=== PATIENT | male | born 1975 | race Caucasian/White ===

== ENCOUNTER 2020-01-23 06:24 | Outpatient (REF) | payer BC, SELFPAY ==
[2020-01-23 07:22] LABS: MANUAL DIFF FLAG NO
[2020-01-23 07:34] LABS: Basophils Percent Auto 0.7 % (0-2); Eosinophils Absolute Auto 0.1 X10*3/uL (0.0-0.4); Eosinophils Percent Auto 2.2 % (0-4); Hematocrit 44.6 % (42-52); Hemoglobin 14.7 g/dl (14.0-18.0); Imm Gran Abs Auto 0.01 X10*3/uL (0.00-0.03); Imm Gran Pct Auto 0.2 % (0.0-0.4); Lymphocytes Absolute Auto 1.7 X10*3/uL (1.2-4.9); Lymphocytes Percent Auto 37.2 % (20-40); Mean Corpuscular Hemoglobin 30.4 pg (27.0-33.0); Mean Corpuscular Volume 92.1 fL (80-98); Mean Platelet Volume 9.7 fL (9.4-12.4); Monocytes Absolute Auto 0.5 X10*3/uL (0.1-1.2); Monocytes Percent Auto 11.4 % (2-11); Neutrophils Absolute Auto 2.2 X10*3/uL (2.0-8.3); Neutrophils Percent Auto 48.3 % (45-73); Platelet Count 260 X10*3/uL (160-400); Red Blood Count 4.84 X10*6/uL (4.60-5.80); Red Cell Distribution Width 12.1 % (11.0-16.0); White Blood Count 4.6 X10*3/uL (4.8-10.8)
[2020-01-23 07:46] LABS: Alanine Aminotransferase 24 U/L (0-40); Albumin Level 4.3 g/dL (3.5-5.0); Alkaline Phosphatase 64 U/L (39-117); Anion Gap 14 (12-20); Aspartate Amino Transferase 20 U/L (5-37); Bilirubin Total 0.4 mg/dL (0.0-1.0); Blood Urea Nitrogen 18 mg/dL (9-16); Calcium 9.1 mg/dL (8.4-10.2); Carbon Dioxide 26 mmol/L (22-29); Chloride 105 mmol/L (96-108); Cholesterol 194 mg/dL; Estimated Glomerular Filt Rate > 60; Glucose Random 90 mg/dL (60-115); HDL Cholesterol 53 mg/dL; LDL Cholesterol Calculated 122 mg/dl; Potassium 5.3 mmol/l (3.3-5.1); Sodium 140 mmol/L (135-145); Total Protein 7.2 g/dL (6.5-8.0); Triglycerides 98 mg/dL
[2020-01-23 08:11] LABS: Free T4 (Free Thyroxine) 0.96 ng/dL (0.71-1.85)
[2020-01-23 08:20] LABS: Folate 15.4 ng/mL (> or = 4.0); Vitamin B12 679 pg/mL (200-900)
== END 2020-01-23 06:25 | disposition home or self-care (01) ==
LOC: HO.LAB 06:24
PROVIDERS: Visit Provider Internal Medicine
DX: E78.00 Pure hypercholesterolemia, unspecified (principal); Z00.00 Encounter for general adult medical examination without abnormal findings
CPT/HCPCS: 36415; 80053; 80061; 82607; 82746; 84439; 84443; 85025

== ENCOUNTER → 2020-02-11 09:27 | Outpatient (REF) | payer BC, SELFPAY ==
--- NOTE | 2020-02-11 09:29 | CA_ITS ---
Transthoracic Echocardiogram Patient (Last, First, Middle): Heath Linton, Gender: Male Date of : 1975 Age: 44 Procedure Date: 02/11/2020 Procedure Type: Transthoracic Echocardiogram Location: OP Height: 177.8 cm Weight: 87.09 kg BSA: 2.05 m2 Heart Rate: 38 bpm BP: 116 / 56 mmHg Site Technician: Referring MD: Ester Bryant MD Symptoms: I35.0 - Nonrheumatic aortic (valve) stenosis Study Quality: Fair ECG Rhythm: Sinus bradycardia. Conclusions: - The left ventricular systolic function is low normal. The visually estimated ejection fraction is between 50-55%. - No obvious valvular pathology seen on this study. Findings Left Ventricle Normal left ventricular cavity size. There is normal left ventricular wall thickness. The left ventricular systolic function is low normal. The visually estimated ejection fraction is between 50-55%. There is no evidence of regional wall motion abnormalities. Diastolic function is normal for age. Prominent trabeculae near apex- likely non-specific (previously noted). Right Ventricle Normal right ventricular cavity size and systolic function. Atria Both atria are normal in size. Aortic Valve There is a normal trileaflet aortic valve. There is no aortic valve stenosis. There is trace (trivial) aortic valve regurgitation. Mitral Valve The mitral valve appears normal. There is trace mitral valve regurgitation. There is no mitral valve stenosis. Pulmonic Valve The pulmonic valve was not well visualized. Tricuspid Valve Normal tricuspid valve structure. There is trace tricuspid valve regurgitation. The pulmonary artery systolic pressure is normal. Great Vessels The aortic annulus, sinuses of valsalva, and asc aorta are normal in size. Venous The inferior vena cava is mildly dilated and collapses greater than 50% with inspiration. Pericardium/Pleural There is no evidence of pericardial effusion. Prior Study Comparison No significant change compared to prior study dated: 01/10/2018. Recommendations, Care & Conclusions No obvious valvular pathology seen on this study. Measurements 2D Linear Measurements IVSd: 0.86 0.6-0.9/0.6-1.0 cm LVIDd: 5.60 3.9-5.3/4.2-5.9 cm LVIDd Index: 2.73 2.4-3.2/2.2-3.1 cm/m2 LVIDs: 4.15 2.0-3.6 cm LVPWd: 0.89 0.7-1.1 cm Ao Root: 2.80 2.1-3.5 cm LA Diam: 3.60 2.7-3.8/3.0-4.0 cm LAIDs Index: 1.76 1.5-2.3 cm/m2 LV Mass: 230.98 67-162/88-224 g LV Mass Index: 112.67 43-95/49-115 g/m2 LVOT Diam: 2.10 3.0+(-)1.3 cm 2D Systolic Function EF 4C: 54.00 >55% EF 2C: 57.70 >55% EF BiP: 55.80 >55% Mitral Valve MV Pk E: 0.83 MV PK A: 0.40 MV Decel Time: 227.00 E/A: 2.10 E'Lateral: 20.50 E'Medial: 13.20 E/E' Med: 6.30 E/E' Lat: 4.10 PHT: 66.00 MVA PHT: 3.33 Decel Crane: 3.68 Aortic Valve AoV Pk Eric: 1.62 AoV Mn Eric: 1.08 AoV VTI: 0.40 AoV Pk Grad: 10.00 Aov Mn Grad: 5.00 NINA Cont.VTI: 2.03 LVOT LVOT Pk Eric: 1.00 LVOT Mn Eric: 0.69 LVOT VTI: 0.24 LVOT Pk Grad: 4.00 LVOT Mn Grad: 2.00 LVOT Diam: 2.10 LVOT Area: 3.46 Diastolic Function MV Pk E: 0.83 MV Pk A: 0.40 E/A: 2.10 E'Medial: 13.20 E/E' Med: 6.30 E' Laterial: 20.50 E/E' Lat: 4.10 Tricuspid Valve TR Pk Eric: 2.14 TR Pk Grad: 18.00 RA Press: 3.00 RVSP: 21.00 Great Vessels Aorta Ao Root-2D: 2.80 2.0-3.7 cm Pulmonary Valve PV Pk Eric: 1.07 Peak PV Grad: 5.00 Updated in Other Vendor System with Status of Final Mario Perdue MD electronically signed on 02/11/2020 11:52:04 AM with status of Final
== END ==
LOC: HO.CARD 09:27
PROVIDERS: PCP Internal Medicine; Visit Provider Internal Medicine
DX: I35.0 Nonrheumatic aortic (valve) stenosis (principal)
CPT/HCPCS: 93306

== ENCOUNTER 2020-04-21 10:27 | Day surgery (SDC) | payer BC, SELFPAY ==
[2020-04-17 10:23] VITALS: BMI 27.1
[2020-04-21 10:51] VITALS: BP 118/78; PULSE 52; RESP 18; TEMP 36.6; O2SAT 99
--- NOTE | 2020-04-21 11:12 | P.CONAN_ITS ---
[facility] Active Problems Active Problems: All Active Problems (Updated 04/17/20 @ 10:24 by Sonam lion) Annual physical exam (Acute) Colon cancer screening (Acute) Overweight (BMI 25.0-29.9) (Acute) Aortic stenosis (Acute) Past Medical History Medical History Aortic stenosis Overweight (BMI 25.0-29.9) Family History Family History Father No problems noted. Mother No problems noted. Paternal Grandmother No problems noted. Family/Other No problems noted. Paternal Grandfather Colon cancer Surgical History Surgical History No pertinent past surgical history Social History Social History Are you a primary healthcare administration internship to a significant other at home: No Do you presently have visiting nurse or other home services: No Alcohol intake: current Alcohol intake frequency: a few times a month Smoking Status: Never smoker Use of substances other than those prescribed or required for medical reasons: Yes Substance Use Frequency: Occasionally Have you been hit, kicked, punched, or otherwise hurt by someone within the past year? If so, by whom?: No Advance Directives Information Provided: No Meds Allergies Allergy/AdvReac Type Severity Reaction Status Date / Time No Known Allergies Allergy Verified 01/21/20 09:05 Active Medications: Current Medications Generic Name Dose Route Start Last Admin Trade Name Freq PRN Reason Stop Dose Admin Sodium Biphosphate/Sodium Phosphate 133 ml 04/21/20 10:17 Sodium Phosphate,[place]-Dibasic 133 Ml Enema IN ONCE PRN Poor Colonoscopy Prep Results Home Medications Medication Instructions Recorded Confirmed Last Taken Type multivitamin 1 tab PO DAILY 01/21/20 04/17/20 Unknown History Exam Exam Date and Time: April 21, 2020 1112 Height,Weight and Vital Signs: Height 5 ft 10 in Weight 85.729 kg Last Vital Signs Temp 98 F 04/21/20 10:51 Pulse 52 04/21/20 10:51 Resp 18 04/21/20 10:51 BP 118/78 04/21/20 10:51 Pulse Ox 99 04/21/20 10:51 Airway Mallampati Class: I TM Dist: >3cm Neck ROM: Full
[2020-04-21] MEDS: Lactated Ringers 1,000 ML 100 ML IVCONT (11:15)
[2020-04-21 12:30] VITALS: BP 111/63; PULSE 65; RESP 15; TEMP 36.9; O2SAT 99
--- NOTE | 2020-04-21 12:31 | PM.OP ---
Brief Operative Note Date of Service: 04/21/20 Pre-op diagnosis: Screening, Family history of colon cancer and colon polyps Post-op diagnosis: other (Colon polyp, Internal hemorrhoids) Procedure: Colonoscopy to the cecum and TI with snare polypectomy Surgeon: Tao Everett Anesthesia: MAC Estimated blood loss (mL): 2.0 Pathology: other (A. Colon polyp at 20cm) Condition: stable Disposition: PACU
[2020-04-21 12:45] VITALS: BP 114/76; PULSE 50; RESP 16; O2SAT 99
--- NOTE | 2020-04-21 12:47 | OP_ITS ---
SURGEON: Tao Everett MD INDICATIONS: The patient presents for evaluation of family history of colorectal cancer and polyps, and colorectal cancer screening. Full consent has been obtained from him for this, including risks of bleeding and perforation. PREOPERATIVE DIAGNOSIS: POSTOPERATIVE DIAGNOSIS: PROCEDURE PERFORMED: Colonoscopy to the cecum and terminal ileum with snare polypectomy. ESTIMATED BLOOD LOSS: COMPLICATIONS: ANESTHESIA: Monitored anesthesia care. ASSISTANTS: SPECIMENS: PREOPERATIVE DIAGNOSES: Family history of colorectal cancer and polyps, colorectal cancer screening. POSTOPERATIVE DIAGNOSES: Family history of colorectal cancer and polyps, colorectal cancer screening, colon polyp, internal hemorrhoids. DESCRIPTION OF PROCEDURE: The patient was placed in the left lateral decubitus position. The digital rectal exam revealed no abnormalities. The Olympus video pediatric colonoscope was entered into the rectum and advanced easily to the cecum. Once in the cecum, I did identify normal-appearing cecal pouch with appendiceal orifice and a normal-appearing ileocecal valve. The terminal ileum was cannulated and appeared normal. The scope was withdrawn back in the colon. The entire cecum and ileocecal valve appeared normal. The scope was then slowly withdrawn assessing all mucosal surfaces carefully. Preparation was excellent. At 20 cm, was a flat, but slightly raised approximately 6 mm polyp, which was snared and recovered by suction. The polypectomy site appeared clean, without any sign of residual polyp nor bleeding. I did not visualize any other polyps, colitis, nor angiodysplasia. In the rectum, scope was retroflexed visualizing internal hemorrhoids, but no other pathology. The rectal mucosa appeared normal. The scope was straightened out and withdrawn from the patient. He tolerated the procedure well and was returned to the recovery area in stable condition. IMPRESSION: 1. Small colon polyp, status post snare polypectomy. 2. Internal hemorrhoids. PLAN: The results of the pathology will be checked. I would recommend a followup colonoscopy at age 49 for further screening purposes even if the polyp is a hyperplastic polyp. He was advised not to use any aspirin and NSAIDs for 1 week. This has been discussed with his . MD BOO Willis/SUN / [id number]
== END 2020-04-21 13:28 | disposition home or self-care (01) ==
PROVIDERS: PCP Internal Medicine; Visit Provider Internal Medicine
PROC: 0DJD8ZZ Inspection of Lower Intestinal Tract, Via Natural or Artificial Opening Endoscopic (ICD-10-PCS; CPT 45378; principal; 2020-04-21 11:40)
DX: Z12.11 Encounter for screening for malignant neoplasm of colon (principal); Z80.0 Family history of malignant neoplasm of digestive organs; Z83.71 Family history of colonic polyps; D12.5 Benign neoplasm of sigmoid colon; K64.8 Other hemorrhoids; I35.0 Nonrheumatic aortic (valve) stenosis; E66.3 Overweight; Z68.27 Body mass index [BMI] 27.0-27.9, adult
CPT/HCPCS: 45385; 88305

== ENCOUNTER 2021-03-18 13:01 | Outpatient (REF) | payer BC, SELFPAY ==
[2021-03-18 13:22] LABS: MANUAL DIFF FLAG NO
[2021-03-18 13:41] LABS: Basophils Percent Auto 0.4 % (0-2); Eosinophils Absolute Auto 0.1 X10*3/uL (0.0-0.4); Eosinophils Percent Auto 0.9 % (0-4); Hematocrit 43.2 % (42.0-52.0); Hemoglobin 14.2 g/dl (14.0-18.0); Imm Gran Abs Auto 0.01 X10*3/uL (0.00-0.03); Imm Gran Pct Auto 0.2 % (0.0-0.4); Lymphocytes Absolute Auto 1.9 X10*3/uL (1.2-4.9); Lymphocytes Percent Auto 34.1 % (20-40); Mean Corpuscular HGB Conc 32.9 g/dl (31.0-36.0); Mean Corpuscular Hemoglobin 30.7 pg (27.0-33.0); Mean Corpuscular Volume 93.5 fL (80.0-98.0); Mean Platelet Volume 9.4 fL (9.4-12.4); Monocytes Absolute Auto 0.5 X10*3/uL (0.1-1.2); Neutrophils Absolute Auto 3.1 x10*3/uL (2.0-8.3); Neutrophils Percent Auto 55.4 % (45-73); Platelet Count 275 X10*3/uL (160-400); Red Blood Count 4.62 X10*6/uL (4.60-5.80); Red Cell Distribution Width 12.3 % (11.0-16.0); White Blood Count 5.6 X10*3/uL (4.8-10.8)
[2021-03-18 14:02] LABS: Alanine Aminotransferase 19 U/L (0-40); Albumin Level 4.4 g/dL (3.5-5.0); Alkaline Phosphatase 70 U/L (39-117); Anion Gap 10 (12-20); Aspartate Amino Transferase 19 U/L (5-37); Bilirubin Total 0.6 mg/dL (0.0-1.0); Blood Urea Nitrogen 13 mg/dL (9-16); Calcium 9.4 mg/dL (8.4-10.2); Carbon Dioxide 30 mmol/L (22-29); Chloride 104 mmol/L (96-108); Estimated Glomerular Filt Rate > 60; Glucose Random 117 mg/dL (60-115); Potassium 4.5 mmol/L (3.3-5.1); Sodium 139 mmol/L (135-145); Total Protein 7.4 g/dL (6.5-8.0)
== END 2021-03-18 13:02 | disposition home or self-care (01) ==
LOC: HO.LAB 13:01
PROVIDERS: PCP Internal Medicine; Visit Provider Internal Medicine
DX: D72.819 Decreased white blood cell count, unspecified (principal); E87.5 Hyperkalemia
CPT/HCPCS: 36415; 80053; 85025

== ENCOUNTER 2022-06-14 06:53 | Outpatient (REF) | payer BC, SELFPAY ==
--- NOTE | ~2022-06-14 | XR_ITS ---
EXAMINATION: XR CHEST CLINICAL INFORMATION: Localized swelling, mass and lump COMPARISON: None available. TECHNIQUE: 2 views of the chest were obtained. FINDINGS: No significant abnormality is noted involving the heart, lungs, mediastinum, bony thorax or soft tissues. XR/XR chest 2V IMPRESSION: Unremarkable examination.
[2022-06-14 07:01] LABS: MANUAL DIFF FLAG NO
[2022-06-14 07:32] LABS: Basophils Percent Auto 0.3 % (0-2); Eosinophils Absolute Auto 0.1 X10*3/uL (0.0-0.4); Eosinophils Percent Auto 0.7 % (0-4); Hematocrit 43.3 % (42.0-52.0); Hemoglobin 14.2 g/dl (14.0-18.0); Imm Gran Abs Auto 0.04 X10*3/uL (0.00-0.03); Imm Gran Pct Auto 0.4 % (0.0-0.4); Lymphocytes Absolute Auto 1.8 X10*3/uL (1.2-4.9); Lymphocytes Percent Auto 19.9 % (20-40); Mean Corpuscular HGB Conc 32.8 g/dl (31.0-36.0); Mean Corpuscular Hemoglobin 30.5 pg (27.0-33.0); Mean Corpuscular Volume 92.9 fL (80.0-98.0); Mean Platelet Volume 9.8 fL (9.4-12.4); Monocytes Absolute Auto 1.2 X10*3/uL (0.1-1.2); Monocytes Percent Auto 13.1 % (2-11); Neutrophils Absolute Auto 5.9 x10*3/uL (2.0-8.3); Neutrophils Percent Auto 65.6 % (45-73); Platelet Count 290 X10*3/uL (160-400); Red Blood Count 4.66 X10*6/uL (4.60-5.80); Red Cell Distribution Width 12.3 % (11.0-16.0)
[2022-06-14 07:46] LABS: Estimated Average Glucose 100 mg/dL; Hemoglobin A1c % 5.1 %
[2022-06-14 08:32] LABS: Folate 10.9 ng/mL (> or = 4.0); Free T4 (Free Thyroxine) 0.95 ng/dL (0.71-1.85); Thyroid Stimulating Hormone 1.72 uIU/mL (0.32-4.0); Vitamin B12 393 pg/mL (200-900)
[2022-06-14 09:08] LABS: Alanine Aminotransferase 12 U/L (0-40); Albumin Level 4.4 g/dL (3.5-5.0); Alkaline Phosphatase 66 U/L (39-117); Anion Gap 11 (12-20); Aspartate Amino Transferase 16 U/L (5-37); Bilirubin Total 1.2 mg/dL (0.0-1.0); Blood Urea Nitrogen 10 mg/dL (9-16); Calcium 9.4 mg/dL (8.4-10.2); Carbon Dioxide 28 mmol/L (22-29); Chloride 107 mmol/L (96-108); Cholesterol 156 mg/dL; Estimated Glomerular Filt Rate > 60; HDL Cholesterol 51 mg/dL; LDL Cholesterol Calculated 94 mg/dl; Potassium 4.4 mmol/L (3.3-5.1); Sodium 142 mmol/L (135-145); Triglycerides 58 mg/dL
[2022-06-14 12:01] LABS: Glucose Random 86 mg/dL (60-115)
== END 2022-06-14 06:54 | disposition home or self-care (01) ==
LOC: HO.LAB 06:53
PROVIDERS: PCP Internal Medicine; Visit Provider Internal Medicine
DX: E66.3 Overweight (principal); E78.00 Pure hypercholesterolemia, unspecified; R22.0 Localized swelling, mass and lump, head; R22.1 Localized swelling, mass and lump, neck; R73.9 Hyperglycemia, unspecified
CPT/HCPCS: 36415; 71046; 80053; 80061; 82607; 82746; 83036; 84439; 84443; 85025

== ENCOUNTER 2022-06-14 09:10 | Outpatient (REF) | payer BC, SELFPAY | END 2022-06-14 09:11 | disposition home or self-care (01) | LOC: HO.HMGCX 09:10 | PROVIDERS: PCP Internal Medicine; Visit Provider Internal Medicine | DX: Z13.89 Encounter for screening for other disorder (principal) ==

== ENCOUNTER 2022-06-14 09:27 | Outpatient (REF) | payer BC, SELFPAY ==
--- NOTE | ~2022-06-14 | US_ITS ---
EXAMINATION: US SOFT TISSUE NECK CLINICAL INFORMATION: Painful swelling adjacent to left sternocleidomastoid muscle. COMPARISON: None available. TECHNIQUE: Ultrasound of the neck soft tissues is performed with high- frequency enamorado-scale imaging and color Doppler. FINDINGS: There is a complex cystic lesion in the left lower neck in the supraclavicular region either in or adjacent to the sternocleidomastoid muscle. This measures 3.4 x 4.6 x 3.3 cm in dimension. Largest cystic area measures 2 x 1.7 x 3.3 cm. This demonstrates increased vascularity. There are 4 adjacent lymph nodes. These have abnormal ultrasound morphology and are diffusely hypoechoic with loss of fatty hilum. These demonstrate mixed hilar and cortical flow. Largest lymph node is minimally enlarged and measures 1.7 x 1.1 x 0.8 cm. US/US soft tiss head and/or neck IMPRESSION: Complex cystic lesion in or adjacent to the left sternocleidomastoid muscle near the clavicle. Adjacent lymphadenopathy. Neoplastic and infectious process should be considered. Follow-up CT or MRI of the soft tissues of the neck recommended. This would be amenable to ultrasound-guided aspiration. 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
== END 2022-06-14 09:28 | disposition home or self-care (01) ==
LOC: HO.HMGCX 09:27
PROVIDERS: PCP Internal Medicine; Visit Provider Internal Medicine
DX: R22.0 Localized swelling, mass and lump, head (principal); R22.1 Localized swelling, mass and lump, neck
CPT/HCPCS: 76536

== ENCOUNTER 2022-06-29 08:22 | Outpatient (REF) | payer BC, SELFPAY ==
--- NOTE | ~2022-06-29 | US_ITS ---
EXAMINATION: US ULTRASOUND-GUIDED BIOPSY, LEFT SUPRACLAVICULAR MASS CLINICAL INDICATIONS: Localized swelling, mass, lump in the left supraclavicular region. TECHNIQUE: Following explaining ultrasound-guided fine-needle biopsy aspiration procedure, benefits and risks of left supraclavicular mass, a written consent was obtained. Patient was placed supine on ultrasound stretcher and preliminary ultrasound imaging was obtained. An optimal site was selected and marked on the skin. The area marked on the skin was cleaned and draped in usual sterile manner with 2% Chlorhexidine solution. 1% lidocaine was injected at puncture site. Through a small skin incision a 22-gauge fine-needle was advanced and a 5 pass fine-needle biopsy aspiration was performed. Postprocedure complete hemostasis was achieved at puncture site. Sterile Band-Aid applied postprocedure. Patient on procedure extremely well. US/US guided fine needle asp FINDINGS/IMPRESSION: On ultrasound imaging there is a multilobulated complex cystic and solid mass in the left supraclavicular region. Most consistent with abnormal lymph node. Ultrasound-guided fine-needle biopsy performed and revealed adequate specimen/tissue for diagnosis. No lymphoid cells seen on the preliminary report. Awaiting final results.
[2022-06-29] MEDS: Lidocaine HCl 1 % MPF 5 ML VIAL SUBCUT (09:20)
== END 2022-06-29 08:23 | disposition home or self-care (01) ==
LOC: HO.US 08:22
PROVIDERS: PCP Internal Medicine; Visit Provider Internal Medicine
DX: R22.0 Localized swelling, mass and lump, head (principal); R22.1 Localized swelling, mass and lump, neck
CPT/HCPCS: 10005

== ENCOUNTER 2022-06-30 08:22 | Outpatient (REF) | payer BC, SELFPAY ==
--- NOTE | ~2022-06-30 | CT_ITS ---
EXAMINATION: CT SOFT TISSUE NECK WITH CONTRAST CLINICAL INFORMATION: Localized swelling/mass COMPARISON: None. TECHNIQUE: Following the administration of 60 mL of Omnipaque 350 intravenous contrast, helical imaging was performed in the axial plane with generation of coronal and sagittal reformatted images. This CT examination was performed using dose optimization techniques as appropriate, variously including the following: *Automated exposure control. *Adjustment of mA and/or kV according to patient size (this includes techniques or standardized protocols for targeted exams where dose is matched to indication/reason for exam; i.e. extremities or head). *Use of iterative reconstruction technique. DLP: 363 mGy-cm. FINDINGS: A BB overlies the base of the left neck to noting the site of concern. There is corresponding asymmetric left medial supraclavicular lymphadenopathy, portions of which appear hypoattenuating which may reflect internal necrosis (image 49, series 6), noting beam hardening artifact in this region limits assessment. The conglomerate augustus mass in total spans 2.6 cm and there is slight surrounding perinodal fat stranding. The fat planes of the skull base and soft tissues of the nasopharynx are unremarkable. Mild mucosal disease within the right greater than left maxillary sinus alveolar recesses. No mastoid effusion. The temporomandibular joints are normal. Unerupted bilateral posterior maxillary molars. 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 The remainder of the oral cavity unremarkable. Symmetric prominence of the palatine tonsils for age. Asymmetric enhancing lobulated soft tissue along the right base of tongue partially effacing the vallecula and contacting the lingual surface of the right epiglottis may be on the basis of asymmetric lingual tonsillar hyperplasia though can be correlated with direct inspection to exclude underlying mucosal lesion. Nonspecific mildly enlarged right greater than left level 2A lymph nodes. Nonpathologic size criteria right greater than left suboccipital lymph nodes. The hypopharynx and larynx are unremarkable. Mild segmental fatty infiltration of the bilateral parotid glands. The submandibular glands are normal. The thyroid gland is normal. The partially visualized lung apices are clear. Normal opacification of the major neck vessels. The imaged portions of the brain parenchyma are unremarkable. 5 mm lucent lesion involving the inner table and diploic space of the right greater wing of the sphenoid bone with significant thinning along the outer table, favored to reflect an arachnoid granulation however can be better assessed with contrast-enhanced MRI of the brain. 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 Reversal of the normal cervical lordosis. Moderate C6-C7 and milder C5-C6 disc height loss with mild cervical spondylosis. CT/CT soft tissue neck w IV con IMPRESSION: 1. Asymmetric left medial supraclavicular lymphadenopathy corresponding to the site of clinical concern, some of which may demonstrate central necrosis, suspicious for pathologic augustus metastases. Oncologic workup advised. Nonspecific mildly enlarged right greater than left level 2A lymph nodes. 2. Asymmetric enhancing lobulated soft tissue along the right base of tongue partially effacing the vallecula and contacting the lingual surface of the right epiglottis may be on the basis of asymmetric lingual tonsillar hyperplasia though can be correlated with direct inspection to exclude underlying mucosal lesion. 3. 5 mm lucent lesion involving the inner table and diploic space of the right greater wing of the sphenoid bone with significant thinning along the outer table, favored to reflect an arachnoid granulation however can be better assessed with contrast-enhanced MRI of the brain.
[2022-06-30] MEDS: iohexoL 350 MG/ML 100 ML INFUS..BTL 60 ML IV (09:30)
== END 2022-06-30 08:23 | disposition home or self-care (01) ==
LOC: HO.CT 08:22
PROVIDERS: PCP Internal Medicine; Visit Provider Internal Medicine
DX: R22.0 Localized swelling, mass and lump, head (principal); R22.1 Localized swelling, mass and lump, neck
CPT/HCPCS: 70491; 88172; 88173; 88177; 88305; 88312; 88313; 88341; 88342; Q9967

== ENCOUNTER 2023-01-28 10:02 | Outpatient (AMB) | payer OTHER, SELFPAY ==
[2023-01-28 10:19] VITALS: BP 114/70; PULSE 68; RESP 17; BMI 26.9
--- NOTE | 2023-01-28 10:19 | A.OFFPC_ITS ---
Vital Signs 01/28/23 10:19 Height 5 ft 10 in Weight 187 lb 6 oz BMI 26.9 BP 114/70 Blood Pressure Location Lt brachial Position Sitting Respiration 17 Pulse 68 Pulse Source Palpation Intake Visit Reasons: Annual Exam Manager Technology Required: No Accompanied by: Self / Same As Patient Allergies No Known Allergies Allergy (Verified 01/28/23 10:33) Medication List - Last Reconciled 01/28/23 by Ester Bryant MD calcium carbonate (Calcium) 600 mg PO DAILY darolutamide 600 mg PO BID leuprolide (3 month) (Eligard) 22.5 mg subcut [id number] multivitamin 1 tab PO DAILY oxybutynin chloride 2.5 mg PO BID btdwujf-ygwu-naccz-oreg-capryl 100 mg-150 mg- 50 mg-150 mg 1,000 caps PO DAILY Tobacco use date assessed: 01/28/23 Dental Screening Dental Screen Date: 01/28/23 Did you have a dental visit in the last 12 months?: Yes Did you have a dental problem in the last 6 months where you did not have access to dental care?: No Was dental information given to patient?: Patient has dentist HPI Annual Exam HPI Details 47-year-old male coming in for physical exam. Patient has a history of metastatic prostate cancer stage IV follows up with hematology oncology last seen in 12/29/2019 patient is on palliation patient presented early June 2022 with left neck mass no evidence of bone involved patient has sleeve from any syndrome presently on ADT. Review of the notes in August was in the hospital for neutropenic fever discharged on Levaquin and Augmentin. recent CT chest better. myalgia. frequency. COUNT INCLUDES THE [facility] Medical History Aortic stenosis Overweight (BMI 25.0-29.9) Surgical History No pertinent past surgical history Family History Father No problems noted. Mother No problems noted. Paternal Grandmother No problems noted. Family/Other No problems noted. Paternal Grandfather Colon cancer Social History Housing: Apartment Are you a primary neonatal critical care nurse to a significant other at home: No Do you presently have visiting nurse or other home services: No Alcohol intake: current Alcohol intake frequency: a few times a month Patient Tobacco Use Status: Never used Tobacco Tobacco use type: Cigarette e-Cigarette/Vaping Use: Never Used Second Hand Smoke Exposure: No Current occupational status: employed Cognitive needs: No Hearing needs: No Vision needs: No Questionnaire PHQ-9 Over the last 2 weeks, how often have you been bothered by any of the following problems? 1. Little interest or pleasure in doing things: not at all 2. Feeling down, depressed, or hopeless: not at all 3. Trouble falling or staying asleep, or sleeping too much: not at all 4. Feeling tired or having little energy: not at all 5. Poor appetite or overeating: not at all 6. Feeling bad about yourself - or that you are a failure or have let yourself or your family down: not at all 7. Trouble concentrating on things, such as reading the newspaper or watching television: not at all 8. Moving or speaking so slowly that other people could have noticed. Or the opposite - being so fidgety or restless that you have been moving around a lot more than usual: not at all 9. Thoughts that you would be better off or of hurting yourself in some way: not at all Total score: 0 Depression Screening Interpretation: Negative Depression Screening Done: Yes 23414 - PHQ-9 Billing: Yes Source: Developed by Drs. Tao Schultz, Deedee Hernandez, Clemente Issa and colleagues, with an educational stas from [employer]. Thrive Questionnaire Date Thrive assessed: 01/28/23 I am a: Patient What is your living situation today?: I have a steady place to live Within the past 12 months, did the food you bought not last and you didn't have the money to get more?: Never true Within the past 12 months, did you worry whether your food would run out before you got money to buy more?: Never true Do you have trouble paying for medicines?: No Do you have trouble getting transportation to medical appointments?: No Do you have trouble paying your heating and electricity bill?: No Do you have trouble taking care of your child, family member or friend?: No Do you have trouble with day-to-day activities such as bathing, preparing meals, shopping, managing finances, etc.?: No Are you interested in more education?: No Please select the resources that you would like help with: None Currently or been in a relationship where the following occur: no concerns reported AUDIT C Alcohol Use Questionnaire (AUDIT-C) 1. How often do you have a drink containing alcohol?: 2-4 times a month 2. How many drinks containing alcohol do you have on a typical day when you are drinking?: 3 or 4 3. How often do you have six or more drinks on one occasion?: Less than monthly Total Score: 4 PHILIP-7 AMB Questionnaire PHILIP-7 Date PHILIP - 7 assessed: 01/28/23 Feeling nervous, anxious, or on edge: 0 = Not at all Not being able to stop or control worryin = Not at all Worrying too much about different things: 0 = Not at all Trouble relaxin = Not at all Being so restless that it is hard to sit still: 0 = Not at all Becoming easily annoyed or irritable: 0 = Not at all Feeling afraid as if something awful might happen: 0 = Not at all Total PHILIP-7 score (0-4 normal; 5-9 mild; 10-14 moderate; 15-21 severe): 0 Source: Developed by Drs. Tao Schultz, Deedee Hernandez, Clemente Issa and colleagues, with an educational stas from [employer]. PHILIP-7 Assessment Billing PHILIP-7 Assessment Tool: PHILIP-7 Assessment 23229 Review of Systems Const Denies poor appetite and Denies weakness Eyes Denies no additional complaints ENT Reports Normal hearing present, Denies dizziness, Denies nasal congestion, Denies tinnitus and Denies sore throat Card Denies chest pain, Denies syncope, Denies rapid heart rate and Denies dyspnea Resp Denies cough and Denies dyspnea GI Denies change in stool character, Reports constipation, Denies diarrhea, Denies nausea and Denies vomiting Denies dysuria and Denies urinary frequency Neuro Reports Normal hearing present, Denies confusion, Denies dizziness, Denies syncope and Denies weakness Psych Denies confusion Physical exam (Primary Care) Vital Signs: Last Vital Signs Pulse 68 01/28/23 10:19 Resp 17 01/28/23 10:19 BP 114/70 01/28/23 10:19 BMI result Body Mass Index 26.9 Tobacco/Smoking Status: Tobacco use Status Tobacco use date assessed 01/28/23 01/28/23 10:40 Patient Tobacco Use Status Never used Tobacco 01/28/23 10:19 Tobacco use type Cigarette 01/28/23 10:19 e-Cigarette/Vaping Use Never Used 01/28/23 10:19 PHQ-9: PHQ-9 Score PHQ-9: Total score 0 01/28/23 10:30 Depression Screening Interpretation: Negative Thrive Assessment: Date of Thrive Assessment Date Thrive assessed 01/28/23 01/28/23 10:30 Currently or been in a relationship where the following occur: no concerns reported Const General: No confusion Orientation/consciousness: No confusion HENMT Head: Yes normocephalic Ears: external ears normal and TM's normal bilaterally Face and sinus: Yes normal facial exam Mouth: moist mucous membranes Throat: Yes tonsils normal Eyes Conjunctivae: conjunctivae normal Pupils: Equal, round and reactive pupils present and Pupil accommodation reflex normal Direct Ophthalmoscopy: normal light reflex Neck Neck: No lymphadenopathy Thyroid: Thyroid normal Chest Chest palpation & inspection: normal inspection of the chest Resp Effort & Inspection: normal respiratory effort and no audible wheezes Auscultation: clear to auscultation bilaterally, no crackles, no wheezes and lung sounds not diminished Cardio Rate: regular rate Rhythm: regular rhythm Peripheral pulses: radial pulses present and dorsalis pedis present GI Palpation (GI): no masses Auscultation: normal bowel sounds and normoactive bowel sounds Rectal Exam - Male: Yes deferred Skin General skin exam: no rashes or lesions noted Rashes: no rashes Neuro General: No confusion Cranial nerves: Yes Equal, round and reactive pupils present and Yes Normal hearing present Cognition (Neuro): normal cognition Gait exam (Neuro): Normal gait present Motor exam (neuro): 5/5 motor strength present throughout Deep tendon reflexes (DTR's): Right brachioradialis reflex intensity grade: 2+, Left brachioradialis reflex intensity grade: 2+, Right patellar reflex intensity grade: 2+ and Left patellar reflex intensity grade: 2+ Extrem General: No edema Assessment and Plan Assessment & Plan (1) Annual physical exam: Code(s): Z00.00 - Encounter for general adult medical examination without abnormal findings (2) Prostate cancer: Code(s): C61 - Malignant neoplasm of prostate (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 Li-Fraumeni syndrome is also known as the Sarcoma, Breast, Leukemia, and Adrenal Gland (SBLA) cancer syndrome. This cancer predisposition syndrome is inherited as an autosomal dominant disorder and is associated with abnormalities in the tumor protein p53 gene (TP53). Code(s): Z15.01 - Genetic susceptibility to malignant neoplasm of breast (4) Generalized anxiety disorder: Code(s): F41.1 - Generalized anxiety disorder Orders: Orders Complete Blood Count Auto Diff Today C61 - Malignant neoplasm of prostate Lipid Panel Today C61 - Malignant neoplasm of prostate, E78.00 - Pure hypercholesterolemia, unspecified Thyroid Stimulating Hormone Today C61 - Malignant neoplasm of prostate Free T4 (Free Thyroxine) Today C61 - Malignant neoplasm of prostate Ferritin Today C61 - Malignant neoplasm of prostate CA echo transthoracic complete Today I35.0 - Nonrheumatic aortic (valve) stenosis Comprehensive Met. Panel Today C61 - Malignant neoplasm of prostate Vitamin B12 and Folate Today C61 - Malignant neoplasm of prostate PSA,Total (Free>4and<10) Today C61 - Malignant neoplasm of prostate IRON PROFILE Today C61 - Malignant neoplasm of prostate Reticulocyte Count Today C61 - Malignant neoplasm of prostate Coding Level of Care Code Est Pt Prev Care 40-64y(10467) Diagnoses Annual physical exam Z00.00 Prostate cancer C61 Li-Fraumeni syndrome Z15.01 Generalized anxiety disorder F41.1 Additional Codes PHILIP-7 Assessment Billing - PHILIP-7 Assessment Tool: PHILIP-7 Assessment 87113 ([id number])
== END 2023-01-28 11:18 | disposition home or self-care (01) ==
PROVIDERS: Visit Provider Internal Medicine
DX: Z00.00 Encounter for general adult medical examination without abnormal findings (principal); C61 Malignant neoplasm of prostate; Z15.01 Genetic susceptibility to malignant neoplasm of breast; F41.1 Generalized anxiety disorder
CPT/HCPCS: 99396

== ENCOUNTER 2023-01-31 06:59 | Outpatient (REF) | payer OTHER, SELFPAY ==
[2023-01-31 07:22] LABS: Basophils Percent Auto 1.1 % (0-2); Eosinophils Absolute Auto 0.1 X10*3/uL (0.0-0.4); Eosinophils Percent Auto 3.7 % (0-4); Hematocrit 39.3 % (42.0-52.0); Hemoglobin 12.9 g/dl (14.0-18.0); Immature Retic Fraction 2.6 % (2.3-13.4); Lymphocytes Absolute Auto 1.3 X10*3/uL (1.2-4.9); Lymphocytes Percent Auto 47.9 % (20-40); MANUAL DIFF FLAG SCAN; Mean Corpuscular HGB Conc 32.8 g/dl (31.0-36.0); Mean Corpuscular Hemoglobin 31.2 pg (27.0-33.0); Mean Corpuscular Volume 95.2 fL (80.0-98.0); Mean Platelet Volume 9.2 fL (9.4-12.4); Monocytes Absolute Auto 0.3 X10*3/uL (0.1-1.2); Monocytes Percent Auto 12.7 % (2-11); Neutrophils Absolute Auto 0.9 x10*3/uL (2.0-8.3); Neutrophils Percent Auto 34.6 % (45-73); Platelet Count 260 X10*3/uL (160-400); Red Blood Count 4.13 X10*6/uL (4.60-5.80); Red Cell Distribution Width 12.5 % (11.0-16.0); Retic HGB Equivalent 35.7 pg (30.0-35.0); Reticulocyte Percent 0.6 % (0.5-1.8); Reticulocytes Absolute 0.024 X10*6/uL (0.026-0.095); SCAN SMEAR FLAG 1; White Blood Count 2.7 X10*3/uL (4.8-10.8)
[2023-01-31 07:42] LABS: Alanine Aminotransferase 22 U/L (0-40); Albumin Level 3.9 g/dL (3.5-5.0); Alkaline Phosphatase 101 U/L (39-117); Anion Gap 11 (12-20); Aspartate Amino Transferase 22 U/L (5-37); Bilirubin Total 0.4 mg/dL (0.0-1.0); Blood Urea Nitrogen 14 mg/dL (9-16); Calcium 9.1 mg/dL (8.4-10.2); Carbon Dioxide 25 mmol/L (22-29); Chloride 109 mmol/L (96-108); Cholesterol 167 mg/dL (<200); Estimated Glomerular Filt Rate > 60; Glucose Random 92 mg/dL (60-115); HDL Cholesterol 60 mg/dL (>40); Iron 80 mcg/dL (45-160); LDL Cholesterol Calculated 93 mg/dL (<100); Percent Iron Saturation 35 % (15-50); Sodium 141 mmol/L (135-145); Total Iron Binding Capacity 231 mcg/dL (228-428); Total Protein 6.4 g/dL (6.5-8.0); Triglycerides 70 mg/dL (<150); Unsaturated Iron Binding 151 ug/dL
[2023-01-31 08:01] LABS: Ferritin 138 ng/mL (20-250); Free T4 (Free Thyroxine) 0.81 ng/dL (0.71-1.85); Thyroid Stimulating Hormone 1.86 uIU/mL (0.32-4.0)
[2023-01-31 08:02] LABS: PSA,Total (Free>4and<10) 2.68 ng/mL (0.00-4.00)
[2023-01-31 08:16] LABS: Folate 9.7 ng/mL (> or = 4.0); Vitamin B12 625 pg/mL (200-900)
[2023-01-31 08:35] LABS: SLIDE REVIEW VERIFIED
== END 2023-01-31 07:00 | disposition home or self-care (01) ==
LOC: HO.LAB 06:59
PROVIDERS: PCP Internal Medicine; Visit Provider Internal Medicine
DX: Z12.5 Encounter for screening for malignant neoplasm of prostate (principal); E78.00 Pure hypercholesterolemia, unspecified; C61 Malignant neoplasm of prostate
CPT/HCPCS: 36415; 80053; 80061; 82607; 82728; 82746; 83540; 84153; 84439; 84443; 85025; 85045

== ENCOUNTER → 2023-02-22 07:53 | Outpatient (REF) | payer OTHER, SELFPAY ==
--- NOTE | 2023-02-22 07:55 | CA_ITS ---
Transthoracic Echocardiogram Patient (Last, First, Middle): Heath Linton, Gender: Male Date of : 1975 Age: 47 Procedure Date: 02/22/2023 Procedure Type: Transthoracic Echocardiogram Location: OP Height: 177.8 cm Weight: 84.82 kg BSA: 2.03 m2 Heart Rate: 45 bpm BP: 113 / 70 mmHg Swimmer: PRADEEP Referring MD: Ester Bryant MD Manuscript Editor: Finn Germain MD Symptoms: I35.0 - Nonrheumatic aortic (valve) stenosis Study Quality: Adequate/w Contrast ECG Rhythm: Sinus with extra beats Conclusions: - 1. Mildly reduced LV systolic function with LVEF of 45-50% 2. Normal cardiac valvular Doppler 3. Normal RV systolic pressure 4. No gross pericardial effusion Findings Procedure Information Contrast agent, definity, is being given per protocol without apparent complications. Left Ventricle Mildly increased left ventricular cavity size. There is normal left ventricular wall thickness. The left ventricular systolic function is mildly decreased. The visually estimated ejection fraction is between 45-50%. Spectral Doppler is indicative of a normal filling pattern. Peak GLS is 16.7%, which is mildly reduced. Right Ventricle Normal right ventricular cavity size and systolic function. Atria The left atrium is likely dilated. There is no evidence of interatrial shunt. The right atrium is normal in size. Aortic Valve Normal aortic valve structure and function. There is no aortic valve stenosis. There is no aortic valve regurgitation. Mitral Valve Normal mitral valve structure and function. There is trace mitral valve regurgitation. There is no mitral valve stenosis. Pulmonic Valve The pulmonic valve was not well visualized. Tricuspid Valve Likely normal tricuspid valve structure and function. There is trace tricuspid valve regurgitation. The right ventricular systolic pressure is normal. The right ventricular systolic pressure is 23 mmHg. Normal right atrial pressure. There is no evidence of pulmonary hypertension. Great Vessels The pulmonary artery was not well visualized. There is no dilatation of the ascending aorta measuring 3.00 cm. Venous The inferior vena cava is normal in size and collapses greater than 50% with inspiration. Pericardium/Pleural There is no evidence of pericardial effusion. Prior Study Comparison Changes noted compared to prior study dated: 02/11/2020. LV systolic function is mildly reduced Measurements 2D Linear Measurements IVSd: 0.82 0.6-0.9/0.6-1.0 cm LVIDd: 5.63 3.9-5.3/4.2-5.9 cm LVIDd Index: 2.77 2.4-3.2/2.2-3.1 cm/m2 LVIDs: 4.01 2.0-3.6 cm LVPWd: 0.93 0.7-1.1 cm LA Diam: 3.70 2.7-3.8/3.0-4.0 cm LAIDs Index: 1.82 1.5-2.3 cm/m2 LV Mass: 232.77 67-162/88-224 g LV Mass Index: 114.67 43-95/49-115 g/m2 LVOT Diam: 2.20 3.0+(-)1.3 cm 2D Systolic Function EF 4C: 46.80 >55% EF 2C: 53.30 >55% EF BiP: 49.80 >55% Mitral Valve MV Pk E: 0.83 MV PK A: 0.37 MV Decel Time: 248.00 E/A: 2.20 E'Lateral: 13.70 E'Medial: 11.50 E/E' Med: 7.20 E/E' Lat: 6.10 PHT: 73.00 MVA PHT: 3.01 Decel [place]: 3.34 Aortic Valve AoV Pk Eric: 1.54 AoV Mn Eric: 1.17 AoV VTI: 0.37 AoV Pk Grad: 9.00 Aov Mn Grad: 6.00 NINA Cont.VTI: 2.26 LVOT LVOT Pk Eric: 0.96 LVOT Mn Eric: 0.68 LVOT VTI: 0.22 LVOT Pk Grad: 4.00 LVOT Mn Grad: 2.00 LVOT Diam: 2.20 LVOT Area: 3.80 Diastolic Function MV Pk E: 0.83 MV Pk A: 0.37 E/A: 2.20 E'Medial: 11.50 E/E' Med: 7.20 E' Laterial: 13.70 E/E' Lat: 6.10 Right Ventricle TAPSE (mm): 32.70 TVS' Eric: 12.50 Tricuspid Valve TR Pk Eric: 1.92 TR Pk Grad: 15.00 RA Press: 8.00 RVSP: 23.00 Great Vessels Aorta Sinus of Valsalva: 3.20 2.0-3.5 cm Ao Asc: 3.00 2.1-3.4 cm Pulmonary Valve PV Pk Eric: 1.11 Peak PV Grad: 5.00 Updated in Other Vendor System with Status of Final Finn Germain MD electronically signed on 02/23/2023 3:37:32 PM with status of Final
== END ==
LOC: HO.CARD 07:53
PROVIDERS: PCP Internal Medicine; Visit Provider Internal Medicine
DX: I35.0 Nonrheumatic aortic (valve) stenosis (principal)
CPT/HCPCS: 93306; 93356; Q9957

== ENCOUNTER → 2023-02-22 07:55 | Outpatient (BNV) | payer OTHER, SELFPAY | PROVIDERS: PCP Internal Medicine; Visit Provider Internal Medicine Cardiovascular Disease | DX: I35.0 Nonrheumatic aortic (valve) stenosis (principal) | CPT/HCPCS: 93306 ==

== ENCOUNTER 2023-04-13 13:17 | Outpatient (AMB) | payer OTHER, SELFPAY ==
[2023-04-13 13:29] VITALS: BP 128/68; PULSE 73; O2SAT 96; BMI 26.7
--- NOTE | 2023-04-13 13:29 | MHC.PC.OV ---
Vital Signs 04/13/23 13:29 Height 5 ft 10 in Weight 186 lb BMI 26.7 BP 128/68 Blood Pressure Location Lt brachial Position Sitting Pulse 73 Pulse Source Pulse Oximeter Pulse Oximetry (%) 96 Oxygen Delivery Method Room Air Intake Visit Reasons: Hemorrhoids Allergies No Known Allergies Allergy (Verified 04/13/23 13:31) Tobacco use date assessed: 04/13/23 Dental Screening Dental Screen Date: 04/13/23 Did you have a dental visit in the last 12 months?: Yes Did you have a dental problem in the last 6 months where you did not have access to dental care?: No Was dental information given to patient?: Patient has dentist HPI Hemorrhoids HPI Details 47-year-old male with a history of prostate cancer in generalized anxiety disorder coming in for follow-up. Last seen in January review of the notes oncology seen in November 2022 metastatic prostate cancer lymph node supraclavicular mediastinal abdominal on present treatment palliative intent on the flutamide with leuprolide. feels mass on the rectal area and has been given Proctosol which has helped the be GI bleeding. Patient has been constipated before where the bleeding happened. Presently doing fine [facility] Medical History (Updated 04/13/23 @ 14:19 by Ester Bryant MD) Rectal bleeding Overweight (BMI 25.0-29.9) Aortic stenosis Surgical History No pertinent past surgical history Family History (Updated 04/13/23 @ 13:33 by Ranjana Dodd CMA) Father No problems noted. Mother No problems noted. Paternal Grandmother No problems noted. Family/Other No problems noted. Paternal Grandfather Colon cancer Social History Housing: Apartment Are you a primary child care aide to a significant other at home: No Do you presently have visiting nurse or other home services: No Alcohol intake: current Alcohol intake frequency: a few times a month Patient Tobacco Use Status: Never used Tobacco Tobacco use type: Cigarette e-Cigarette/Vaping Use: Never Used Second Hand Smoke Exposure: No Current occupational status: employed Cognitive needs: No Hearing needs: No Vision needs: No Questionnaire PHQ-9 Over the last 2 weeks, how often have you been bothered by any of the following problems? 1. Little interest or pleasure in doing things: not at all 2. Feeling down, depressed, or hopeless: not at all 3. Trouble falling or staying asleep, or sleeping too much: not at all 4. Feeling tired or having little energy: not at all 5. Poor appetite or overeating: not at all 6. Feeling bad about yourself - or that you are a failure or have let yourself or your family down: not at all 7. Trouble concentrating on things, such as reading the newspaper or watching television: not at all 8. Moving or speaking so slowly that other people could have noticed. Or the opposite - being so fidgety or restless that you have been moving around a lot more than usual: not at all 9. Thoughts that you would be better off or of hurting yourself in some way: not at all Total score: 0 Depression Screening Interpretation: Negative Depression Screening Done: Yes 84516 - PHQ-9 Billing: Yes Source: Developed by Drs. Tao Schultz, Deedee Hernandez, Clemente Issa and colleagues, with an educational stas from [employer]. Thrive Questionnaire Date Thrive assessed: 04/13/23 I am a: Patient What is your living situation today?: I have a steady place to live Within the past 12 months, did the food you bought not last and you didn't have the money to get more?: Never true Within the past 12 months, did you worry whether your food would run out before you got money to buy more?: Never true Do you have trouble paying for medicines?: No Do you have trouble getting transportation to medical appointments?: No Do you have trouble paying your heating and electricity bill?: No Do you have trouble taking care of your child, family member or friend?: No Do you have trouble with day-to-day activities such as bathing, preparing meals, shopping, managing finances, etc.?: No Are you currently unemployed and looking for a job?: No Are you interested in more education?: No Please select the resources that you would like help with: None Currently or been in a relationship where the following occur: no concerns reported THRIVE Score: 0 AUDIT C Alcohol Use Questionnaire (AUDIT-C) 1. How often do you have a drink containing alcohol?: 2-4 times a month 2. How many drinks containing alcohol do you have on a typical day when you are drinking?: 3 or 4 3. How often do you have six or more drinks on one occasion?: Less than monthly Total Score: 4 PHILIP-7 AMB Questionnaire PHILIP-7 Date PHILIP - 7 assessed: 04/13/23 Feeling nervous, anxious, or on edge: 0 = Not at all Not being able to stop or control worryin = Not at all Worrying too much about different things: 0 = Not at all Trouble relaxin = Not at all Being so restless that it is hard to sit still: 0 = Not at all Becoming easily annoyed or irritable: 0 = Not at all Feeling afraid as if something awful might happen: 0 = Not at all Total PHILIP-7 score (0-4 normal; 5-9 mild; 10-14 moderate; 15-21 severe): 0 Source: Developed by Drs. Tao Schultz, Deedee Hernandez, Clemente Issa and colleagues, with an educational stas from [employer]. PHILIP-7 Assessment Billing PHILIP-7 Assessment Tool: PHILIP-7 Assessment [id number] Physical exam (Primary Care) Vital Signs: Last Vital Signs Pulse 73 04/13/23 13:29 BP 128/68 04/13/23 13:29 Pulse Ox 96 04/13/23 13:29 Oxygen Delivery Method Room Air 04/13/23 13:29 BMI result Body Mass Index 26.7 Tobacco/Smoking Status: Tobacco use Status Tobacco use date assessed 04/13/23 04/13/23 13:36 Patient Tobacco Use Status Never used Tobacco 04/13/23 13:36 Tobacco use type Cigarette 04/13/23 13:36 e-Cigarette/Vaping Use Never Used 04/13/23 13:36 PHQ-9: PHQ-9 Score PHQ-9: Total score 0 04/13/23 14:09 Depression Screening Interpretation: Negative Thrive Assessment: Date of Thrive Assessment Date Thrive assessed 04/13/23 04/13/23 13:36 Currently or been in a relationship where the following occur: no concerns reported Const General: alert; No acute distress Eyes Conjunctivae: conjunctivae normal Resp Auscultation: clear to auscultation bilaterally Cardio Rate: regular rate Rhythm: regular rhythm GI Inspection: Yes normal to inspection Other: Physical exam notes positive for hemorrhoid, violaceous 1 cm mass on the 3 o'clock position rectal area Extrem General: Yes normal to inspection and No edema Assessment and Plan Assessment & Plan (1) Prostate cancer: Code(s): C61 - Malignant neoplasm of prostate Plan: Patient under Hematology-Oncology notes indicate palliative treatment for the metastatic prostate cancer. (2) Generalized anxiety disorder: Code(s): F41.1 - Generalized anxiety disorder Plan: Continue with present medication (3) Rectal bleeding: Code(s): K62.5 - Hemorrhage of anus and rectum Plan: Resolved and noted hemorrhoids in the rectal area (4) Constipation: Code(s): K59.00 - Constipation, unspecified Plan: Three rules for constipation 1. Diet need to have a high fiber diet less of meat 2. Increase oral fluids 3. Exercise (5) Hemorrhoids: Code(s): K64.9 - Unspecified hemorrhoids Plan: Discussed about avoiding constipation and Proctosol sent in. Medications: New sennosides-docusate sodium 8.6-50 mg (Senna Plus) 2 tab-caps (2 x 8.6-50 mg) PO BEDTIME 60 caps 3RF K59.00 - Constipation, unspecified Coding Level of Care Code Est Pt Level 4 (61101) Diagnoses Prostate cancer C61 Generalized anxiety disorder F41.1 Rectal bleeding K62.5 Constipation K59.00 Hemorrhoids K64.9 Additional Codes PHILIP-7 Assessment Billing - PHILIP-7 Assessment Tool: PHILIP-7 Assessment 25741 ([id number])
== END 2023-04-13 14:39 | disposition home or self-care (01) ==
PROVIDERS: PCP Internal Medicine; Visit Provider Internal Medicine
DX: K64.8 Other hemorrhoids (principal); C61 Malignant neoplasm of prostate; F41.1 Generalized anxiety disorder; K59.00 Constipation, unspecified
CPT/HCPCS: 99214

== ENCOUNTER 2023-07-28 09:38 | Outpatient (AMB) | payer OTHER, SELFPAY ==
[2023-07-28 09:50] VITALS: BP 118/78; PULSE 56; O2SAT 96; BMI 26.7
--- NOTE | 2023-07-28 09:50 | MHC.PC.OV ---
Vital Signs 07/28/23 09:50 Height 5 ft 10 in Weight 186 lb BMI 26.7 BP 118/78 Blood Pressure Location Lt brachial Position Sitting Pulse 56 Pulse Source Pulse Oximeter Pulse Oximetry (%) 96 Oxygen Delivery Method Room Air Intake Visit Reasons: prostate cancer [employer] Required: No Allergies No Known Allergies Allergy (Verified 04/13/23 13:31) Tobacco use date assessed: 07/28/23 Dental Screening Dental Screen Date: 04/13/23 Did you have a dental visit in the last 12 months?: Yes Did you have a dental problem in the last 6 months where you did not have access to dental care?: No Was dental information given to patient?: Patient has dentist HPI prostate cancer HPI Details 48 year old male with a history of metastatic prostate cancer 2022 generalized anxiety disorder constipation last seen in 04/05/2023 patient's colonoscopy done 01/03/2023 patient continues to follow-up with Hematology-Oncology in [facility]. 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 Li-Fraumeni syndrome is also known as the Sarcoma, Breast, Leukemia, and Adrenal Gland (SBLA) cancer syndrome and as heritable tumor protein p53 gene (TP53)-related cancer syndrome [3]. ) Tolerating treatment with good biochemical response hot flashes treated with oxybutynin gabapentin for neuropathy. Received from the patient an MRI of the whole body done in 08/04/2023 showing no definite evidence of malignancy subcentimeter T2 hyperintense liver lesion statistically likely cysts. MRI of the brain no acute infarct mass lesion hemorrhage or abnormal parenchymal enhancement similar size subtle dural thickening along the posterior falx 11 x 9 mm and only 1 mm in dimension question of meningioma [facility] Medical History (Updated 07/28/23 @ 09:59 by Ester Bryant MD) Aortic stenosis Rectal bleeding Overweight (BMI 25.0-29.9) Surgical History No pertinent past surgical history Family History (Updated 04/13/23 @ 13:33 by Ranjana Dodd CMA) Father No problems noted. Mother No problems noted. Paternal Grandmother No problems noted. Family/Other No problems noted. Paternal Grandfather Colon cancer Social History Housing: Apartment Are you a primary long term care phlebotomist to a significant other at home: No Do you presently have visiting nurse or other home services: No Alcohol intake: current Alcohol intake frequency: a few times a month Patient Tobacco Use Status: Never used Tobacco Tobacco use type: Cigarette e-Cigarette/Vaping Use: Never Used Second Hand Smoke Exposure: No Current occupational status: employed Cognitive needs: No Hearing needs: No Vision needs: No Questionnaire Thrive Questionnaire Date Thrive assessed: 04/13/23 AUDIT C Alcohol Use Questionnaire (AUDIT-C) 1. How often do you have a drink containing alcohol?: 2-4 times a month 2. How many drinks containing alcohol do you have on a typical day when you are drinking?: 3 or 4 3. How often do you have six or more drinks on one occasion?: Less than monthly Total Score: 4 PHILIP-7 AMB Questionnaire PHILIP-7 Date PHILIP - 7 assessed: 04/13/23 Source: Developed by Drs. Tao Schultz, Deedee Hernandez, Clemente Issa and colleagues, with an educational stas from [employer]. Physical exam (Primary Care) Vital Signs: Last Vital Signs Pulse 56 07/28/23 09:50 BP 118/78 07/28/23 09:50 Pulse Ox 96 07/28/23 09:50 Oxygen Delivery Method Room Air 07/28/23 09:50 BMI result Body Mass Index 26.7 Tobacco/Smoking Status: Tobacco use Status Tobacco use date assessed 07/28/23 07/28/23 09:54 Patient Tobacco Use Status Never used Tobacco 07/28/23 09:50 Tobacco use type Cigarette 07/28/23 09:50 e-Cigarette/Vaping Use Never Used 07/28/23 09:50 Thrive Assessment: Date of Thrive Assessment Date Thrive assessed 04/13/23 07/28/23 09:50 Const General: alert; No acute distress Eyes Conjunctivae: conjunctivae normal Resp Auscultation: clear to auscultation bilaterally Cardio Rate: regular rate Rhythm: regular rhythm GI Inspection: Yes normal to inspection Extrem General: Yes normal to inspection and No edema Assessment and Plan Assessment & Plan (1) 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 Li-Fraumeni syndrome is also known as the Sarcoma, Breast, Leukemia, and Adrenal Gland (SBLA) cancer syndrome. This cancer predisposition syndrome is inherited as an autosomal dominant disorder and is associated with abnormalities in the tumor protein p53 gene (TP53). Code(s): Z15.01 - Genetic susceptibility to malignant neoplasm of breast Plan: Patient presently under Hematology-Oncology under surveillance had the whole-body MRI done (2) Prostate cancer: Code(s): C61 - Malignant neoplasm of prostate Plan: Continue to have the treatment under the Hematology-Oncology (3) Generalized anxiety disorder: Code(s): F41.1 - Generalized anxiety disorder Plan: Continue with present medication Orders: Orders Complete Blood Count Auto Diff Today D72.819 - Decreased white blood cell count, unspecified Thyroid Stimulating Hormone Today D72.819 - Decreased white blood cell count, unspecified Reticulocyte Count Today D72.819 - Decreased white blood cell count, unspecified Free T4 (Free Thyroxine) Today D72.819 - Decreased white blood cell count, unspecified Comprehensive Met. Panel Today D72.819 - Decreased white blood cell count, unspecified Ferritin Today D72.819 - Decreased white blood cell count, unspecified IRON PROFILE Today D72.819 - Decreased white blood cell count, unspecified Vitamin B12 and Folate Today D72.819 - Decreased white blood cell count, unspecified Coding Level of Care Code Est Pt Level 4 (99267) Diagnoses Li-Fraumeni syndrome Z15.01 Prostate cancer C61 Generalized anxiety disorder F41.1
== END 2023-07-28 10:14 | disposition home or self-care (01) ==
PROVIDERS: PCP Internal Medicine; Visit Provider Internal Medicine
DX: C61 Malignant neoplasm of prostate (principal); Z15.01 Genetic susceptibility to malignant neoplasm of breast; F41.1 Generalized anxiety disorder
CPT/HCPCS: 99214

== ENCOUNTER 2023-07-28 10:32 | Outpatient (REF) | payer OTHER, SELFPAY ==
[2023-07-28 10:49] LABS: MANUAL DIFF FLAG NO
[2023-07-28 11:45] LABS: Basophils Percent Auto 0.7 % (0-2); Eosinophils Absolute Auto 0.1 X10*3/uL (0.0-0.4); Eosinophils Percent Auto 1.9 % (0-4); Hemoglobin 13.5 g/dl (14.0-18.0); Imm Gran Abs Auto 0.01 X10*3/uL (0.00-0.03); Imm Gran Pct Auto 0.2 % (0.0-0.4); Lymphocytes Absolute Auto 1.7 X10*3/uL (1.2-4.9); Mean Corpuscular HGB Conc 33.8 g/dl (31.0-36.0); Mean Corpuscular Hemoglobin 31.1 pg (27.0-33.0); Mean Corpuscular Volume 92.2 fL (80.0-98.0); Mean Platelet Volume 9.2 fL (9.4-12.4); Monocytes Absolute Auto 0.4 X10*3/uL (0.1-1.2); Monocytes Percent Auto 10.2 % (2-11); Neutrophils Absolute Auto 1.9 x10*3/uL (2.0-8.3); Platelet Count 282 X10*3/uL (160-400); Red Blood Count 4.34 X10*6/uL (4.60-5.80); Red Cell Distribution Width 12.7 % (11.0-16.0); Retic HGB Equivalent 35.7 pg (30.0-35.0); Reticulocyte Percent 0.9 % (0.5-1.8); White Blood Count 4.2 X10*3/uL (4.8-10.8)
[2023-07-28 12:08] LABS: Alanine Aminotransferase 28 U/L (0-40); Albumin Level 4.4 g/dL (3.5-5.0); Alkaline Phosphatase 104 U/L (39-117); Anion Gap 9 (12-20); Aspartate Amino Transferase 27 U/L (5-37); Bilirubin Total 0.6 mg/dL (0.0-1.0); Blood Urea Nitrogen 14 mg/dL (9-16); Calcium 9.7 mg/dL (8.4-10.2); Carbon Dioxide 30 mmol/L (22-29); Chloride 105 mmol/L (96-108); Estimated Glomerular Filt Rate > 60; Glucose Random 93 mg/dL (60-115); Iron 108 mcg/dL (45-160); Percent Iron Saturation 37 % (15-50); Potassium 4.4 mmol/L (3.3-5.1); Sodium 140 mmol/L (135-145); Total Iron Binding Capacity 295 mcg/dL (228-428); Total Protein 7.3 g/dL (6.5-8.0); Unsaturated Iron Binding 187 ug/dL
[2023-07-28 12:21] LABS: PSA,Total (Free>4and<10) 0.27 ng/mL (0.00-4.00)
[2023-07-28 12:25] LABS: Ferritin 185 ng/mL (20-250); Free T4 (Free Thyroxine) 0.96 ng/dL (0.71-1.85); Thyroid Stimulating Hormone 1.35 uIU/mL (0.32-4.0)
[2023-07-28 12:35] LABS: Vitamin B12 630 pg/mL (200-900)
== END 2023-07-28 10:33 | disposition home or self-care (01) ==
LOC: HO.LAB 10:32
PROVIDERS: PCP Internal Medicine; Visit Provider Internal Medicine
DX: D72.819 Decreased white blood cell count, unspecified (principal); C61 Malignant neoplasm of prostate; Z12.5 Encounter for screening for malignant neoplasm of prostate
CPT/HCPCS: 36415; 80053; 82607; 82728; 82746; 83540; 84153; 84439; 84443; 85025; 85045

== ENCOUNTER 2024-02-03 10:53 | Outpatient (AMB) | payer OTHER, SELFPAY ==
--- NOTE | 2024-02-03 10:54 | A.OFFPC_ITS ---
Vital Signs 02/03/24 10:56 Height 5 ft 10 in Weight 193 lb 4 oz BMI 27.7 BP 130/66 Blood Pressure Location Lt brachial Position Sitting Pulse 64 Pulse Source Pulse Oximeter Pulse Oximetry (%) 97 Oxygen Delivery Method Room Air Intake Visit Reasons: Annual Exam Intake Note: Patient is here today for a physical. Pt decline flu shot today. 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 Manager Life Sciences: Not Required per policy Accompanied by: Self / Same As Patient Allergies No Known Allergies Allergy (Verified 02/03/24 10:56) Medication List - Last Reconciled 02/03/24 by Ester Bryant MD alprazolam 0.25 mg PO BEDTIME PRN calcium carbonate (Calcium 600) 600 mg PO DAILY darolutamide 600 mg PO BID hydrocortisone 2.5% (Proctosol HC) 1 appl LA BID-QID PRN leuprolide (3 month) (Eligard) 22.5 mg subcut [id number] multivitamin 1 tab PO DAILY oxybutynin chloride ER 2.5 mg PO DAILY sennosides-docusate sodium 8.6-50 mg (Senna Plus) 2 tab-caps (2 x 8.6-50 mg) PO BEDTIME [id number]-szpn-ihiqu-oreg-capry 100 mg-150 mg- 50 mg-150 mg 1,000 caps PO DAILY Tobacco use date assessed: 02/03/24 Dental Screening Dental Screen Date: 04/13/23 HPI Annual Exam HPI Details The patient is a 48-year-old male presenting with prostate cancer, hypertension, osteopenia, anxiety, and hypogonadism. He completed chemotherapy in December last year and is currently under surveillance with [facility]. He undergoes whole-body MRI for follow-up, the last being in June, and plans another MRI follow-up in January with [facility]. Currently, he is on hormone therapy and androgen receptor inhibitors, such as Luprolide and Darolutamide. He mentioned weight gain possibly due to the hormone therapy, and actively engages in walking, running, and hiking to manage his health. He denies new allergies but occasionally uses Alprazolam for anxiety. His medication regimen includes calcium and multivitamins for bone health, as well as oxybutynin to manage hot flashes, which are a side effect of his current therapy. He expresses some con cern over maintaining bone density and is currently on a screening schedule for osteoporosis. - Vaccinations: Patient deferred the [facility] influenza vaccine - Health Screening: Regularly scheduled MRI for prostate cancer surveillance. Ejection fraction and stress test were completed earlier in the year. - Lifestyle: Actively engaged in physica l activities such as walking, running, and hiking approximately 12 to 15 miles per week. - Diet: Regular intake of plant-based pr oteins, colored fruits, and vegetables to maintain diet quality and manage weight. - Substance Use Counseling: Advised mode ration in alcohol and marijuana use to mitigate health risks. - Physical activity: Engages in walking, running, and hiking approximately 12 to 15 miles per week. - Substance use: Consumes alcohol once a week, intake of three to six drinks, and uses marijuana mainly as edibles. - Diet: Consumes a healthy diet rich in plant proteins, vegetables, and colored fruits. - General: Denies weight loss or gain, f ever, or fatigue. - Cardiovascular: Denies chest pain, pal pitations, or dyspnea. - Respiratory: Denies cough or wheezing. - Gastrointestinal: Denies nausea, vomit ing, or change in bowel habits. - Neurological: Denies headaches, dizzin ess, or focal weakness. - Labs: Recent labs show low red blood c ell count indicating anemia, previous screening done at [facility]. - Imaging: Previous stress test and echo cardiogram showed left ventricular ejection fraction of 45-50%. [facility] Medical History (Updated 07/28/23 @ 09:59 by Ester Bryant MD) Aortic stenosis Rectal bleeding Overweight (BMI 25.0-29.9) Surgical History No pertinent past surgical history Family History Father No problems noted. Mother No problems noted. Paternal Grandmother No problems noted. Family/Other No problems noted. Paternal Grandfather Colon cancer Social History (Updated 02/03/24 @ 11:41 by Ester Bryant MD) Housing: Apartment Are you a primary care transition coordinator to a significant other at home: No Do you presently have visiting nurse or other home services: No Alcohol intake: current Alcohol intake frequency: a few times a month Comment: once a week 3-6 drinks Patient Tobacco Use Status: Never used Tobacco Tobacco use type: Cigarette e-Cigarette/Vaping Use: Never Used Second Hand Smoke Exposure: No service: No Current occupational status: employed Cognitive needs: No Hearing needs: No Vision needs: No Questionnaire PHQ-9 Over the last 2 weeks, how often have you been bothered by any of the following problems? 1. Little interest or pleasure in doing things: not at all 2. Feeling down, depressed, or hopeless: not at all 3. Trouble falling or staying asleep, or sleeping too much: not at all 4. Feeling tired or having little energy: not at all 5. Poor appetite or overeating: not at all 6. Feeling bad about yourself - or that you are a failure or have let yourself or your family down: not at all 7. Trouble concentrating on things, such as reading the newspaper or watching television: not at all 8. Moving or speaking so slowly that other people could have noticed. Or the opposite - being so fidgety or restless that you have been moving around a lot more than usual: not at all 9. Thoughts that you would be better off or of hurting yourself in some way: not at all Total score: 0 Depression Screening Interpretation: Negative Depression Screening Done: Yes Source: Developed by Drs. Tao Schultz, Deedee Hernandez, Clemente Issa and colleagues, with an educational stas from [employer]. Thrive Questionnaire Date Thrive assessed: 02/03/24 I am a: Patient What is your living situation today?: I have a steady place to live Within the past 12 months, did the food you bought not last and you didn't have the money to get more?: Never true Within the past 12 months, did you worry whether your food would run out before you got money to buy more?: Never true Do you have trouble paying for medicines?: No Do you have trouble getting transportation to medical appointments?: No Do you have trouble paying your heating and electricity bill?: No Do you have trouble taking care of your child, family member or friend?: No Do you have trouble with day-to-day activities such as bathing, preparing meals, shopping, managing finances, etc.?: No Are you currently unemployed and looking for a job?: No Are you interested in more education?: No Please select the resources that you would like help with: None Currently or been in a relationship where the following occur: No concerns reported THRIVE Score: 0 AUDIT C Alcohol Use Questionnaire (AUDIT-C) 1. How often do you have a drink containing alcohol?: 2-4 times a month 2. How many drinks containing alcohol do you have on a typical day when you are drinking?: 5 or 6 3. How often do you have six or more drinks on one occasion?: Monthly Total Score: 6 PHILIP-7 AMB Questionnaire PHILIP-7 Date PHILIP - 7 assessed: 02/03/24 Feeling nervous, anxious, or on edge: 0 = Not at all Not being able to stop or control worryin = Not at all Worrying too much about different things: 0 = Not at all Trouble relaxin = Not at all Being so restless that it is hard to sit still: 0 = Not at all Becoming easily annoyed or irritable: 0 = Not at all Feeling afraid as if something awful might happen: 0 = Not at all Total PHILIP-7 score (0-4 normal; 5-9 mild; 10-14 moderate; 15-21 severe): 0 Source: Developed by Drs. Tao Schultz, Deedee Hernandez, Clemente Issa and colleagues, with an educational stas from [employer]. Review of Systems Const Denies poor appetite and Denies weakness Eyes Denies no additional complaints ENT Reports Normal hearing present, Denies dizziness, Denies nasal congestion, Denies tinnitus and Denies sore throat Card Denies chest pain, Denies syncope, Denies rapid heart rate and Denies dyspnea Resp Denies cough and Denies dyspnea GI Denies change in stool character, Reports constipation, Denies diarrhea, Denies nausea and Denies vomiting Denies dysuria and Denies urinary frequency Neuro Reports Normal hearing present, Denies confusion, Denies dizziness, Denies syncope and Denies weakness Psych Denies confusion Physical exam (Primary Care) Vital Signs: Last Vital Signs Pulse 64 02/03/24 10:56 BP 130/66 02/03/24 10:56 Pulse Ox 97 02/03/24 10:56 Oxygen Delivery Method Room Air 02/03/24 10:56 BMI result Body Mass Index 27.7 Tobacco/Smoking Status: Tobacco use Status Tobacco use date assessed 02/03/24 02/03/24 11:01 Patient Tobacco Use Status Never used Tobacco 02/03/24 11:41 Tobacco use type Cigarette 02/03/24 11:41 e-Cigarette/Vaping Use Never Used 02/03/24 11:41 PHQ-9: PHQ-9 Score PHQ-9: Total score 0 02/03/24 11:42 Depression Screening Interpretation: Negative Thrive Assessment: Date of Thrive Assessment Date Thrive assessed 02/03/24 02/03/24 11:01 Currently or been in a relationship where the following occur: No concerns reported Const General: No confusion Orientation/consciousness: No confusion HENMT Head: Yes normocephalic Ears: external ears normal and TM's normal bilaterally Face and sinus: Yes normal facial exam Mouth: moist mucous membranes Throat: Yes tonsils normal Eyes Conjunctivae: conjunctivae normal Pupils: Equal, round and reactive pupils present and Pupil accommodation reflex normal Direct Ophthalmoscopy: normal light reflex Neck Neck: No lymphadenopathy Thyroid: Thyroid normal Chest Chest palpation & inspection: normal inspection of the chest Resp Effort & Inspection: normal respiratory effort and no audible wheezes Auscultation: clear to auscultation bilaterally, no crackles, no wheezes and lung sounds not diminished Cardio Rate: regular rate Rhythm: regular rhythm Peripheral pulses: radial pulses present and dorsalis pedis present GI Palpation (GI): no masses Auscultation: normal bowel sounds and normoactive bowel sounds Rectal Exam - Male: Yes deferred Skin General skin exam: no rashes or lesions noted Rashes: no rashes Neuro General: No confusion Cranial nerves: Yes Equal, round and reactive pupils present and Yes Normal hearing present Cognition (Neuro): normal cognition Gait exam (Neuro): Normal gait present Motor exam (neuro): 5/5 motor strength present throughout Deep tendon reflexes (DTR's): Right brachioradialis reflex intensity grade: 2+, Left brachioradialis reflex intensity grade: 2+, Right patellar reflex intensity grade: 2+ and Left patellar reflex intensity grade: 2+ Extrem General: No edema Coding Level of Care Code Est Pt Prev Care 40-64y(25606) Diagnoses Annual physical exam Z00.00 Prostate cancer C61 Li-Fraumeni syndrome Z15.01 Generalized anxiety disorder F41.1 Assessment & Plan Assessment & Plan (1) Annual physical exam: Code(s): Z00.00 - Encounter for general adult medical examination without abnormal findings Category: Medical (2) Prostate cancer: Code(s): C61 - Malignant neoplasm of prostate Category: Medical Plan: finished chemotherapy (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 Li-Fraumeni syndrome is also known as the Sarcoma, Breast, Leukemia, and Adrenal Gland (SB LA) cancer syndrome. This cancer predisposition syndrome is inherited as an autosomal dominant disorder and is associated with abnormalities in the tumor protein p53 gene (TP53). Code(s): Z15.01 - Genetic susceptibility to malignant neoplasm of breast Category: Medical (4) Generalized anxiety disorder: Code(s): F41.1 - Generalized anxiety disorder Category: Medical Plan - Continue current hormone therapy with Luprolide and Daroludamide. - Monitor blood pressure and weight; continue exercise regime. - Continue Alprazolam as needed for anxiety. - Maintain current osteoporosis prevention regimen with calcium supplementation. - Follow up on low red blood cell count and complete blood work, including tests for anemia and bone health calcium levels). - Perform regular MRI surveillance for prostate cancer; next scheduled in January. - Assess risk for Lyme disease considering exposure risks and recent history. - Modify alcohol and cannabis intake; review for potential impact on cardiov ascular health. I discussed with the patient the successful completion of chemotherapy and the continuation of his current management plan involving hormone therapy. We reviewed the necessity for regular MRIs to monitor for potential recurrence or progression of prostate cancer. I emphasized the importance of managing side effects of therapies, such as hot flashes and osteopenia, through the current medication plan. We talked about risks associated with alcohol and marijuana use, especially given his cardiovascular profile. I encouraged the incorporation of a diet rich in fruits and vegetables to support overall health, particularly in managing weight gain associated with hormone therapy. Follow-up plans involve re- Maintain the current schedule for prostate cancer surveillance with periodic MRIs. - Continue daily activities such as walking, running, and hiking, aiming for 12- 15 miles a week. - Follow a balanced diet rich in plant-based foods and diverse fruits and vegetables. - Monitor and try to moderate alcohol consumption and marijuana use, aiming for safe limits. - Report any new or worsening symptoms, particularly dizziness, unexplained fatigue, or swelling to me immediately. - Ensure follow-up for blood work to monitor anemia and bone health. - Be cautious during flu season and consider vaccination in future visits. Orders: Orders Comprehensive Met. Panel Today D7.819 - Decreased white blood cell count, unspecified Free T4 (Free Thyroxine) Today D72.819 - Decreased white blood cell count, unspecified Testosterone, Total Today D72.819 - Decreased white blood cell count, unspecified PSA,Total (Free>4and<10) Today D72.819 - Decreased white blood cell count, unspecified Magnesium Today D72.819 - Decreased white blood cell count, unspecified IRON PROFILE Today D72.819 - Decreased white blood cell count, unspecified Vitamin D 25-OH Total Today D72.819 - Decreased white blood cell count, unspec ified Complete Blood Count Auto Diff Today D7.819 - Decreased white blood cell count, unspecified Thyroid Stimulating Hormone Today D72.819 - Decreased white blood cell count, unspecified Lipid Panel Today D72.819 - Decreased white blood cell count, unspecified, E78.00 - Pure hypercholesterolemia, unspecified Vitamin B12 and Folate Today D72.819 - Decreased white blood cell count, unspecified Lyme IgG/IgM w/reflex to WB Today D72.819 - Decreased white blood cell count, unspecified Reticulocyte Count Today D72.819 - Decreased white blood cell count, unspecified Ferritin Today D72.819 - Decreased white blood cell count, unspecified Medications: New oxybutynin chloride 2.5 mg (1/2 x 5 mg) PO BEDTIME 45 tabs 2RF flushing 90 days
[2024-02-03 10:56] VITALS: BP 130/66; PULSE 64; O2SAT 97; BMI 27.7
== END 2024-02-03 11:58 | disposition home or self-care (01) ==
PROVIDERS: PCP Internal Medicine; Visit Provider Internal Medicine
DX: Z00.00 Encounter for general adult medical examination without abnormal findings (principal); C61 Malignant neoplasm of prostate; Z15.01 Genetic susceptibility to malignant neoplasm of breast; F41.1 Generalized anxiety disorder

== ENCOUNTER 2024-02-10 07:33 | Outpatient (REF) | payer OTHER, SELFPAY ==
[2024-02-10 07:52] LABS: MANUAL DIFF FLAG NO
[2024-02-10 08:26] LABS: Basophils Percent Auto 0.5 % (0-2); Eosinophils Absolute Auto 0.1 X10*3/uL (0.0-0.4); Eosinophils Percent Auto 2.2 % (0-4); Hematocrit 41.3 % (42.0-52.0); Hemoglobin 13.7 g/dl (14.0-18.0); Immature Retic Fraction 6.8 % (2.3-13.4); Lymphocytes Absolute Auto 1.9 X10*3/uL (1.2-4.9); Lymphocytes Percent Auto 45.7 % (20-40); Mean Corpuscular HGB Conc 33.2 g/dl (31.0-36.0); Mean Corpuscular Hemoglobin 31.1 pg (27.0-33.0); Mean Corpuscular Volume 93.9 fL (80.0-98.0); Mean Platelet Volume 9.2 fL (9.4-12.4); Monocytes Absolute Auto 0.4 X10*3/uL (0.1-1.2); Monocytes Percent Auto 9.6 % (2-11); Neutrophils Absolute Auto 1.7 x10*3/uL (2.0-8.3); Platelet Count 288 X10*3/uL (160-400); Red Cell Distribution Width 12.2 % (11.0-16.0); Retic HGB Equivalent 35.1 pg (30.0-35.0); Reticulocyte Percent 0.9 % (0.5-1.8); Reticulocytes Absolute 0.041 X10*6/uL (0.026-0.095); White Blood Count 4.1 X10*3/uL (4.8-10.8)
[2024-02-10 08:57] LABS: Alanine Aminotransferase 27 U/L (0-40); Albumin Level 4.4 g/dL (3.5-5.0); Alkaline Phosphatase 100 U/L (39-117); Anion Gap 10 (12-20); Aspartate Amino Transferase 27 U/L (5-37); Bilirubin Total 0.7 mg/dL (0.0-1.0); Blood Urea Nitrogen 13 mg/dL (9-16); Calcium 9.4 mg/dL (8.4-10.2); Carbon Dioxide 29 mmol/L (22-29); Chloride 106 mmol/L (96-108); Cholesterol 189 mg/dL (<200); Estimated Glomerular Filt Rate > 60; Glucose Random 92 mg/dL (60-115); HDL Cholesterol 67 mg/dL (>40); Iron 130 mcg/dL (45-160); LDL Cholesterol Calculated 105 mg/dL (<100); Magnesium 2.1 mg/dL (1.6-2.6); Percent Iron Saturation 46 % (15-50); Potassium 3.9 mmol/L (3.3-5.1); Sodium 141 mmol/L (135-145); Total Iron Binding Capacity 281 mcg/dL (228-428); Total Protein 7.1 g/dL (6.5-8.0); Triglycerides 87 mg/dL (<150); Unsaturated Iron Binding 151 ug/dL
[2024-02-10 09:07] LABS: PSA,Total (Free>4and<10) < 0.10 ng/mL (0.00-4.00)
[2024-02-10 09:12] LABS: Ferritin 225 ng/mL (20-250); Free T4 (Free Thyroxine) 1.14 ng/dL (0.71-1.85); Thyroid Stimulating Hormone 1.62 uIU/mL (0.32-4.0); Vitamin D 25-OH Total 59.4 ng/mL (>30)
[2024-02-10 09:21] LABS: Folate 13.7 ng/mL (> or = 4.0); Vitamin B12 600 pg/mL (200-900)
[2024-02-13 13:18] LABS: Testosterone, Total 13 ng/dL (250-1100)
[2024-02-13 17:53] LABS: Lyme Abs Screen <0.90 index
== END 2024-02-10 07:34 | disposition home or self-care (01) ==
LOC: HO.LAB 07:33
PROVIDERS: PCP Internal Medicine; Visit Provider Internal Medicine
DX: D72.819 Decreased white blood cell count, unspecified (principal); E78.00 Pure hypercholesterolemia, unspecified; Z12.5 Encounter for screening for malignant neoplasm of prostate
CPT/HCPCS: 36415; 80053; 80061; 82306; 82607; 82728; 82746; 83540; 83735; 84153; 84403; 84439; 84443; 85025; 85045; 86617; 86618

== ENCOUNTER 2024-08-03 09:41 | Outpatient (AMB) | payer OTHER, SELFPAY ==
[2024-08-03 09:43] VITALS: BP 108/76; PULSE 51; O2SAT 98; BMI 27.3
--- NOTE | 2024-08-03 09:43 | A.OFFPC_ITS ---
Vital Signs 08/03/24 09:43 Height 5 ft 10 in Weight 190 lb BMI 27.3 BP 108/76 Blood Pressure Location Lt brachial Position Sitting Pulse 51 Pulse Source Pulse Oximeter Pulse Oximetry (%) 98 Oxygen Delivery Method Room Air Intake Visit Reasons: 6mth f/u Credit Rating Inspector Required: No Accompanied by: Self / Same As Patient Allergies No Known Allergies Allergy (Verified 08/03/24 09:43) Tobacco use date assessed: 08/03/24 Dental Screening Dental Screen Date: 08/03/24 Did you have a dental visit in the last 12 months?: Yes Did you have a dental problem in the last 6 months where you did not have access to dental care?: No Was dental information given to patient?: Patient has dentist [facility] Medical History (Updated 08/03/24 @ 10:07 by Ester Bryant MD) Aortic stenosis Rectal bleeding Overweight (BMI 25.0-29.9) Surgical History No pertinent past surgical history Family History Father No problems noted. Mother No problems noted. Paternal Grandmother No problems noted. Family/Other No problems noted. Paternal Grandfather Colon cancer Social History Housing: Apartment Are you a primary point of care specialist to a significant other at home: No Do you presently have visiting nurse or other home services: No Alcohol intake: current Alcohol intake frequency: a few times a month Comment: once a week 3-6 drinks Patient Tobacco Use Status: Never used Tobacco Tobacco use type: Cigarette e-Cigarette/Vaping Use: Never Used Second Hand Smoke Exposure: No service: No Current occupational status: employed Current occupational exposures/hazards: No Cognitive needs: No Hearing needs: No Vision needs: No Questionnaire PHQ-9 Over the last 2 weeks, how often have you been bothered by any of the following problems? 1. Little interest or pleasure in doing things: not at all 2. Feeling down, depressed, or hopeless: not at all 3. Trouble falling or staying asleep, or sleeping too much: not at all 4. Feeling tired or having little energy: not at all 5. Poor appetite or overeating: not at all 6. Feeling bad about yourself - or that you are a failure or have let yourself or your family down: not at all 7. Trouble concentrating on things, such as reading the newspaper or watching television: not at all 8. Moving or speaking so slowly that other people could have noticed. Or the opposite - being so fidgety or restless that you have been moving around a lot more than usual: not at all 9. Thoughts that you would be better off or of hurting yourself in some way: not at all Total score: 0 Source: Developed by Drs. Tao Schultz, Deedee Hernandez, Clemente Issa and colleagues, with an educational stas from [employer]. Thrive Questionnaire Date Thrive assessed: 08/03/24 I am a: Patient What is your living situation today?: I have a steady place to live Within the past 12 months, did the food you bought not last and you didn't have the money to get more?: Never true Within the past 12 months, did you worry whether your food would run out before you got money to buy more?: Never true Do you have trouble paying for medicines?: No Do you have trouble getting transportation to medical appointments?: No Do you have trouble paying your heating and electricity bill?: No Do you have trouble taking care of your child, family member or friend?: No Do you have trouble with day-to-day activities such as bathing, preparing meals, shopping, managing finances, etc.?: No Are you currently unemployed and looking for a job?: No Are you interested in more education?: No Please select the resources that you would like help with: None Currently or been in a relationship where the following occur: No concerns reported THRIVE Score: 0 AUDIT C Alcohol Use Questionnaire (AUDIT-C) 1. How often do you have a drink containing alcohol?: 2-4 times a month 2. How many drinks containing alcohol do you have on a typical day when you are drinking?: 3 or 4 3. How often do you have six or more drinks on one occasion?: Monthly Total Score: 5 PHILIP-7 AMB Questionnaire PHILIP-7 Date PHILIP - 7 assessed: 08/03/24 Feeling nervous, anxious, or on edge: 1 = Several days Not being able to stop or control worryin = Not at all Worrying too much about different things: 1 = Several days Trouble relaxin = Not at all Being so restless that it is hard to sit still: 0 = Not at all Becoming easily annoyed or irritable: 1 = Several days Feeling afraid as if something awful might happen: 0 = Not at all Total PHILIP-7 score (0-4 normal; 5-9 mild; 10-14 moderate; 15-21 severe): 3 Source: Developed by Drs. Tao Schultz, Deedee Hernandez, Clemente Issa and colleagues, with an educational stas from [employer]. Physical exam (Primary Care) Vital Signs: Last Vital Signs Pulse 51 08/03/24 09:43 BP 108/76 08/03/24 09:43 Pulse Ox 98 08/03/24 09:43 Oxygen Delivery Method Room Air 08/03/24 09:43 BMI result Body Mass Index 27.3 Tobacco/Smoking Status: Tobacco use Status Tobacco use date assessed 08/03/24 08/03/24 09:47 Patient Tobacco Use Status Never used Tobacco 08/03/24 09:47 Tobacco use type Cigarette 08/03/24 09:47 e-Cigarette/Vaping Use Never Used 08/03/24 09:47 PHQ-9: PHQ-9 Score PHQ-9: Total score 0 08/03/24 09:47 Thrive Assessment: Date of Thrive Assessment Date Thrive assessed 08/03/24 08/03/24 09:47 Currently or been in a relationship where the following occur: No concerns reported Const General: alert; No acute distress Eyes Conjunctivae: conjunctivae normal Resp Auscultation: clear to auscultation bilaterally Cardio Rate: regular rate Rhythm: regular rhythm GI Inspection: Yes normal to inspection Extrem General: Yes normal to inspection and No edema Coding Level of Care Code Est Pt Level 4 (24819) Complex EM visit Add On G2211 Diagnoses Prostate cancer C61 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 Li-Fraumeni syndrome is also known as the Sarcoma, Breast, Leukemia, and Adrenal Gland (SBLA) cancer syndrome. This cancer predisposition syndrome is inherited as an autosomal dominant disorder and is associated with abnormalities in the tumor protein p53 gene (TP53). Code(s): Z15.01 - Genetic susceptibility to malignant neoplasm of breast Category: Medical Plan: Continue to follow-up with [facility] was advised to get PSA, CBC and CMP every 3 months, dermatology annually colonoscopy according to GI brain MRI whole-body MRI July 2024 follow-up genetics. Derm is Dr. Block. Whole body scan Gabriel (3) Pulmonary nodule: Comment: [id number]/06/2022 CT scan of chest abdomen and pelvis showing nonspecific 3 mm solid nodule in the left lung base, mesenteric lymphadenopathy additional few periaortic subcentimeter lymph nodes no lytic lesion. Code(s): R91.1 - Solitary pulmonary nodule Category: Medical Plan: Continue to follow-up with screening (4) Colon cancer screening: Comment: scheduled for 12/2024 Dakota Chavez Code(s): Z12.11 - Encounter for screening for malignant neoplasm of colon Category: Medical Plan: Patient is supposed to go for GI screening (5) Generalized anxiety disorder: Code(s): F41.1 - Generalized anxiety disorder Category: Medical Plan: Continue with medication as needed Plan History of Present Illness The patient is a 49-year-old male presenting for a follow-up visit. He has a history of prostate cancer and generalized anxiety disorder, with follow-up care at the [facility] showing a good response to enzalutamide and leuprolide therapy. A pulmonary nodule has been stable over the past year, and recent blood work indicated mild anemia and leukopenia, with normal platelet counts. Electrolytes, renal function, and blood sugar levels were normal, and LDL cholesterol was 105 mg/dL. Preventative care includes a scheduled colonoscopy, biennial bone density tests, annual dermatology visits, and quarterly PSA, CBC, and CMP tests. Health Maintenance - Colonoscopy scheduled for this year - Bone density testing advised every 2 years - Annual dermatology follow-up - PSA, CBC, CMP every 3 months Social History Review of Systems - Gastrointestinal: Reports occasional constipation, managed with senna as needed. - Genitourinary: Reports nocturia once or twice per night. Physical Exam Results - Labs: Mild anemia with hemoglobin 13.7 g/dL, mild leukopenia with WBC 4.1 x10^9/L, normal platelets. - Labs: Normal electrolytes, renal function, and blood sugar; LDL cholesterol 105 mg/dL. Plan The patient will continue regular follow-ups with the [facility], including PSA, CBC, and CMP testing every three months. Annual dermatology visits and a scheduled colonoscopy are advised for preventative care. Bone density testing is to be repeated every two years. Current medications should be continued, with follow-up with the oncologist for any necessary changes. The patient is reminded to ensure all test results are shared with his primary care provider for coordinated care. Patient was informed and verbally consented to the use of an ambient scribe for clinic note documentation during this visit. Discussion Notes Patient Instructions - Continue regular follow-ups with [facility]. - Schedule and complete colonoscopy this year. - Maintain annual dermatology visits. - Repeat bone density testing every two years. - Ensure all test results are communicated to your primary care provider. Orders: Orders Comprehensive Met. Panel Today C61 - Malignant neoplasm of prostate Free T4 (Free Thyroxine) Today C61 - Malignant neoplasm of prostate Lipid Panel Today C61 - Malignant neoplasm of prostate, E78.00 - Pure hypercholesterolemia, unspecified Vitamin B12 and Folate Today C61 - Malignant neoplasm of prostate Complete Blood Count Auto Diff Today C61 - Malignant neoplasm of prostate Ferritin Today C61 - Malignant neoplasm of prostate Reticulocyte Count Today C61 - Malignant neoplasm of prostate IRON PROFILE Today C61 - Malignant neoplasm of prostate Thyroid Stimulating Hormone Today C61 - Malignant neoplasm of prostate Hemoglobin A1c Today C61 - Malignant neoplasm of prostate Vitamin D 25-OH Total Today C61 - Malignant neoplasm of prostate Prostate Specific Antigen Scr Today C61 - Malignant neoplasm of prostate
--- OUTSIDE RECORDS SUMMARY | 2024-08-03 09:53 | XMS_ITS | Clinical Summary ---
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 Name Role Phone Unavailable Primary Care Provider Unavailabl e Social History Tobacco Use Types Packs/Day Years Used Date Smoking Tobacco: Never Assessed Sex and Gender Information Value Date Recorded Sex Assigned at Not on file Legal Sex Male 5:39 PM EDT Gender Identity Not on file Sexual Orientation Not on file Plan of Treatment Health Maintenance Due Date Last Done Comments DTaP,Tdap,and Td Vaccines (1 - Tdap) 1993 Hepatitis B Vaccines (1 of 3 - 19+ 3-dose series) 1993 COVID-19 Vaccine (1 - 2023-2 5 season) 2023 Pneumococcal Vaccine: 50+ Ye ars (1 of 1 - PCV) 2024 Zoster Vaccines (1 of 2) 2024 Influenza Vaccine (Season Ended) 2024 HIB Vaccines Aged Out No longer eligi ble based on patient's age to complete this topic HPV Vaccines Aged Out No longer eligi ble based on patient's age to complete this topic Hepatitis A Vaccines Aged Out No long er eligible based on patient's age to complete this topic IPV Vaccines Aged Out No longer eligi ble based on patient's age to complete this topic MMR Vaccines Aged Out No longer eligi ble based on patient's age to complete this topic Meningococcal ACWY Vaccine Aged Out N o longer eligible based on patient's age to complete this topic Meningococcal B Vaccine Aged Out No l onger eligible based on patient's age to complete this topic Pneumococcal Vaccine: Pediat rics (0 to 5 Years) and At-Risk Patients (6 to 64 Years) Aged Out No longer eligible b ased on patient's age to complete this topic RSV Immunization Patients Un marisela 20 months Aged Out No longer eligible b ased on patient's age to complete this topic Varicella Vaccines Aged Out No longer eligible based on patient's age to complete this topic
== END 2024-08-03 10:14 | disposition home or self-care (01) ==
LOC: HO.HMCH 09:42
PROVIDERS: PCP Internal Medicine; Visit Provider Internal Medicine
DX: C61 Malignant neoplasm of prostate (principal); Z15.01 Genetic susceptibility to malignant neoplasm of breast; R91.1 Solitary pulmonary nodule; Z12.11 Encounter for screening for malignant neoplasm of colon; F41.1 Generalized anxiety disorder

== ENCOUNTER → 2024-08-03 09:41 | Outpatient (BNVA) | payer OTHER, SELFPAY | PROVIDERS: PCP Internal Medicine; Visit Provider Internal Medicine ==

== ENCOUNTER 2024-08-06 06:13 | Outpatient (REF) | payer OTHER, SELFPAY ==
--- OUTSIDE RECORDS SUMMARY | 2024-08-06 06:15 | XMS_ITS | Clinical Summary ---
Author Organization [facility] ity Address [address] [place] [address] Care Team Providers Care Program Counselor Name Role Phone Unavailable Primary Care Provider [...]
[2024-08-06 06:38] LABS: MANUAL DIFF FLAG NO
[2024-08-06 07:32] LABS: Basophils Percent Auto 0.7 % (0-2); Eosinophils Absolute Auto 0.1 X10*3/uL (0.0-0.4); Eosinophils Percent Auto 2.6 % (0-4); Hematocrit 39.2 % (42.0-52.0); Hemoglobin 12.9 g/dl (14.0-18.0); Imm Gran Abs Auto 0.01 X10*3/uL (0.00-0.03); Imm Gran Pct Auto 0.2 % (0.0-0.4); Lymphocytes Absolute Auto 2.3 X10*3/uL (1.2-4.9); Lymphocytes Percent Auto 50.1 % (20-40); Mean Corpuscular HGB Conc 32.9 g/dl (31.0-36.0); Mean Corpuscular Hemoglobin 30.8 pg (27.0-33.0); Mean Corpuscular Volume 93.6 fL (80.0-98.0); Mean Platelet Volume 9.5 fL (9.4-12.4); Monocytes Absolute Auto 0.5 X10*3/uL (0.1-1.2); Monocytes Percent Auto 10.6 % (2-11); Neutrophils Absolute Auto 1.6 x10*3/uL (2.0-8.3); Neutrophils Percent Auto 35.8 % (45-73); Platelet Count 271 X10*3/uL (160-400); Red Blood Count 4.19 X10*6/uL (4.60-5.80); Red Cell Distribution Width 12.3 % (11.0-16.0); Retic HGB Equivalent 34.6 pg (30.0-35.0); Reticulocyte Percent 0.8 % (0.5-1.8); Reticulocytes Absolute 0.034 X10*6/uL (0.026-0.095); White Blood Count 4.5 X10*3/uL (4.8-10.8)
[2024-08-06 07:46] LABS: Estimated Average Glucose 108 mg/dL; Hemoglobin A1c % 5.4 % (<6.0); Total Hemoglobin (HGBA1C) 3352.9374 umol/L
[2024-08-06 08:02] LABS: Alanine Aminotransferase 29 U/L (0-40); Albumin Level 4.4 g/dL (3.5-5.0); Alkaline Phosphatase 86 U/L (39-117); Anion Gap 12 (12-20); Aspartate Amino Transferase 24 U/L (5-37); Bilirubin Total 0.7 mg/dL (0.0-1.0); Blood Urea Nitrogen 14 mg/dL (9-16); Calcium 9.5 mg/dL (8.4-10.2); Carbon Dioxide 28 mmol/L (22-29); Chloride 108 mmol/L (96-108); Cholesterol 154 mg/dL (<200); Estimated Glomerular Filt Rate > 60; Glucose Random 93 mg/dL (60-115); HDL Cholesterol 58 mg/dL (>40); Iron 117 mcg/dL (45-160); LDL Cholesterol Calculated 83 mg/dL (<100); Percent Iron Saturation 43 % (15-50); Potassium 4.7 mmol/L (3.3-5.1); Sodium 143 mmol/L (135-145); Total Iron Binding Capacity 269 mcg/dL (228-428); Total Protein 6.7 g/dL (6.5-8.0); Triglycerides 69 mg/dL (<150); Unsaturated Iron Binding 152 ug/dL
[2024-08-06 08:20] LABS: Ferritin 161 ng/mL (20-250); Thyroid Stimulating Hormone 2.44 uIU/mL (0.32-4.0)
[2024-08-06 08:34] LABS: Folate 11.5 ng/mL (> or = 4.0); Prostate Specific Antigen Scr < 0.10 ng/mL (<0.05-4.0); Vitamin B12 742 pg/mL (200-900)
== END 2024-08-06 06:14 | disposition home or self-care (01) ==
LOC: HO.LAB 06:13
PROVIDERS: PCP Internal Medicine; Visit Provider Internal Medicine
DX: Z12.5 Encounter for screening for malignant neoplasm of prostate (principal); Z13.1 Encounter for screening for diabetes mellitus; C61 Malignant neoplasm of prostate; E78.00 Pure hypercholesterolemia, unspecified
CPT/HCPCS: 36415; 80053; 80061; 82306; 82607; 82728; 82746; 83036; 83540; 84153; 84439; 84443; 85025; 85045

== ENCOUNTER 2024-09-12 11:10 | Outpatient (AMB) | payer OTHER, SELFPAY ==
--- NOTE | 2024-09-12 11:10 | A.OFFPC_ITS ---
Intake Visit Reasons: Left Knee Pain Allergies No Known Allergies Allergy (Verified 09/12/24 11:10) Tobacco use date assessed: 09/12/24 Dental Screening Dental Screen Date: 09/12/24 Did you have a dental visit in the last 12 months?: Yes Did you have a dental problem in the last 6 months where you did not have access to dental care?: No Was dental information given to patient?: Patient has dentist [facility] Medical History Aortic stenosis Rectal bleeding Overweight (BMI 25.0-29.9) Surgical History No pertinent past surgical history Family History Father No problems noted. Mother No problems noted. Paternal Grandmother No problems noted. Family/Other No problems noted. Paternal Grandfather Colon cancer Social History Housing: Apartment Are you a primary care management associate to a significant other at home: No Do you presently have visiting nurse or other home services: No Alcohol intake: current Alcohol intake frequency: a few times a month Comment: once a week 3-6 drinks Patient Tobacco Use Status: Never used Tobacco e-Cigarette/Vaping Use: Never Used Second Hand Smoke Exposure: No service: No Current occupational status: employed Current occupational exposures/hazards: No Cognitive needs: No Hearing needs: No Vision needs: No Questionnaire PHQ-9 Over the last 2 weeks, how often have you been bothered by any of the following problems? 1. Little interest or pleasure in doing things: not at all 2. Feeling down, depressed, or hopeless: not at all 3. Trouble falling or staying asleep, or sleeping too much: not at all 4. Feeling tired or having little energy: not at all 5. Poor appetite or overeating: not at all 6. Feeling bad about yourself - or that you are a failure or have let yourself or your family down: not at all 7. Trouble concentrating on things, such as reading the newspaper or watching television: not at all 8. Moving or speaking so slowly that other people could have noticed. Or the opposite - being so fidgety or restless that you have been moving around a lot more than usual: not at all 9. Thoughts that you would be better off or of hurting yourself in some way: not at all Total score: 0 Source: Developed by Drs. Tao Schultz, Deedee Hernandez, Clemente Issa and colleagues, with an educational stas from [employer]. Thrive Questionnaire Date Thrive assessed: 07/27/24 I am a: Patient What is your living situation today?: I have a steady place to live Within the past 12 months, did the food you bought not last and you didn't have the money to get more?: Never true Within the past 12 months, did you worry whether your food would run out before you got money to buy more?: Never true Do you have trouble paying for medicines?: No Do you have trouble getting transportation to medical appointments?: No Do you have trouble paying your heating and electricity bill?: No Do you have trouble taking care of your child, family member or friend?: No Do you have trouble with day-to-day activities such as bathing, preparing meals, shopping, managing finances, etc.?: No Are you currently unemployed and looking for a job?: No Are you interested in more education?: No Please select the resources that you would like help with: None Currently or been in a relationship where the following occur: No concerns rep orted THRIVE Score: 0 AUDIT C Alcohol Use Questionnaire (AUDIT-C) 1. How often do you have a drink containing alcohol?: 2-4 times a month 2. How many drinks containing alcohol do you have on a typical day when you are drinking?: 3 or 4 3. How often do you have six or more drinks on one occasion?: Monthly Total Score: 5 PHILIP-7 AMB Questionnaire PHILIP-7 Date PHILIP - 7 assessed: 08/03/24 Feeling nervous, anxious, or on edge: 1 = Several days Not being able to stop or control worryin = Not at all Worrying too much about different things: 1 = Several days Trouble relaxin = Not at all Being so restless that it is hard to sit still: 0 = Not at all Becoming easily annoyed or irritable: 1 = Several days Feeling afraid as if something awful might happen: 0 = Not at all Total PHILIP-7 score (0-4 normal; 5-9 mild; 10-14 moderate; 15-21 severe): 3 Source: Developed by Drs. Tao Schultz, Deedee Hernandez, Clemente Issa and colleagues, with an educational stas from [employer]. Physical exam (Primary Care) Tobacco/Smoking Status: Tobacco use Status Tobacco use date assessed 09/12/24 09/12/24 11:12 Patient Tobacco Use Status Never used Tobacco 09/12/24 11:12 Tobacco use type 09/12/24 11:12 e-Cigarette/Vaping Use Never Used 09/12/24 11:12 PHQ-9: PHQ-9 Score PHQ-9: Total score 0 09/12/24 12:06 Thrive Assessment: Date of Thrive Assessment Date Thrive assessed 07/27/24 09/12/24 11:12 Currently or been in a relationship where the following occur: No concerns reported Telehealth Telehealth Telehealth Platform: [facility] Location of provider rendering services: practice address Location of patient: address on file Patient Identification confirmed using: Name, : Yes Telehealth method: video Patient verbally consented to treatment: Yes Patient verbally consented to billing insurance company: Yes Patient informed of any privacy concerns related to visit: Yes Minutes spent on Phone/Video with Pt.: 15 Coding Level of Care Code Tele Est Pt Level 3 (68288) Diagnoses Left knee pain M25.562 Assessment & Plan Assessment & Plan (1) Left knee pain: Code(s): M25.562 - Pain in left knee Category: Medical Plan History of Present Illness The patient is a 49-year-old male presenting with left knee pain. The knee pain has been intermittent over the past few months and significantly worsened last week during a vacation, causing considerable discomfort and difficulty in ambulation. There was no history of trauma or falls associated with the onset of the pain. The patient has a history of Li-Fraumeni syndrome, metastatic prostate cancer, and generalized anxiety disorder. His last blood work in July showed anemia with a hemoglobin level of 12.9 g/dL, which is not a new finding for him. Other laboratory results, including electrolytes, renal function, liver enzymes, cholesterol levels, and vitamin levels, were within normal limits. Review of Systems - Musculoskeletal: Reports intermittent left knee pain for the past few months, worsened last week. Plan The plan for the patient's left knee pain includes obtaining a plain x-ray to assess the underlying cause, as MRIs are not initially covered by insurance without prior x-ray and physical therapy. The patient is advised to use Voltaren gel, a topical anti-inflammatory, to manage the pain and inflammation in the interim. Follow-up will be arranged to discuss the x-ray results and determine further management steps, including potential referral to orthopedics if necessary. Patient was informed and verbally consented to the use of an ambient scribe for clinic note documentation during this visit. Discussion Notes I discussed with the patient the plan to start with a plain x-ray for the left knee to evaluate the cause of pain, considering insurance requirements for imaging. We talked about using Voltaren gel as a topical anti-inflammatory treatment to alleviate symptoms. I informed the patient that follow-up would be necessary to review the x-ray results and decide on further management, including the possibility of orthopedic referral. Patient Instructions - Use Voltaren gel on the left knee as directed to help reduce pain and inflammation. - Schedule an x-ray for the left knee at the [facility] radiology department at your convenience. - Follow up with the doctor to discuss x-ray results and next steps.
--- OUTSIDE RECORDS SUMMARY | 2024-09-12 12:13 | XMS_ITS | Clinical Summary ---
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
--- OUTSIDE RECORDS SUMMARY | 2024-09-12 12:13 | XMS_ITS | Patient Health Record ---
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 Name Role Phone Ester Bryant MD Primary Care Provider Tao Alfred [phone] Reason For Referral No Information Medications Medication SIG (Take, Route, Fr equency, Duration) Notes Start Date End Date Status Multivitamin - 1 tablet Orally Once a day for 30 day(s) Active Immunizations Vaccine Route Administration Date Status Comme nts Influenza Unknown 11/15/2019 Administered Social History Tobacco Use: Social History Observation Description Date Details (start date - stop date) Never Smoker NA - NA Tobacco Use/Smoking Question Answer Notes Patient is a nonsmoker Alcohol Screen Question Answer Notes Did you have a drink contain ing alcohol in the past year? Yes How often did you have a dri nk containing alcohol in the past year? Monthly or less (1 point) How many drinks did you have on a typical day when you were drinking in the past year? 1 or 2 drinks (0 point) How often did you have 6 or more drinks on one occasion in the past year? Never (0 point) Points 1 Interpretation Negative Section Notes: Nonsmoker; no sig alcohol Problems Problem Type SNOMED Code ICD Code Onset Dates Problem Status W/U Status Risk Notes Problem Screening for malignant neoplasm of colon (638230138) Encounter for screening for malignant neoplasm of colon (Z12.11) Active confirmed Problem Preprocedural examination ([id number]) Preprocedural examination (Z01.818) Active confirmed Problem Family History of Cancer of Colon (Situation) (415829737) Family history of colon cancer (Z80.0) Active confirmed Plan Of Treatment Pending Test Test Name Order Date Pathology 04/21/2020 Future Test Test Name Order Date COLONOSCOPY 04/10/2020 Insurance Providers Payer Name Payer Address Payer Phone Subscriber Number Group Number Insured Name Patient Relationship to Insured Coverage Start Date Coverage End Date [facility] [employer] [address] [place] [address] [id number] COLE GARCIA Self - patient is the insured Medical (General) History Medical History History ICD Code Denies [place],DM,CVA,Lung disease,renal dise ase Surgical History Surgery Date(Month/Year)
--- OUTSIDE RECORDS SUMMARY | 2024-09-12 12:13 | XMS_ITS | Encounter Summary ---
Author Organization [facility] Address [address] [place] [address] Phone Care Team Providers Care Pilates Instructor Name Role Phone Ester Bryant MD Unavailable [phone] Ester Bryant MD Primary Care Provider [phone] Yoni Preston MD Unavailable Robe Qureshi MD Unavailable [phone] Encounter Details Date Type Department Care Team (Late st Contact Info) Description 07/25/2024 Procedure Pass [facility], [facility], MRI [address] [facility], Floor [address] [place] [address] Social History Tobacco Use Types Packs/Day Years Used Date Smoking Tobacco: Never Smokeless Tobacco: Never Alcohol Use Standard Drinks/Week Comments Yes 3 (1 standard drink = 0.6 oz pur e alcohol) Child or Family Care Answer Date Record ed Do you have problems with on e of the following making it difficult for you to work, study, or receive health care? No 08/18/2022 Education Answer Date Recorded Are you interested in help w ith more adult education (for example, completing high school, GED, job training, learning the Cuban language, technical skills, or developing parenting skills)? No 08/18/2022 Are you concerned about learning? Not on file 08/18/2022 No 08/18/2022 Yes 08/18/2022 Food Answer Date Recorded Within the past 6 months we worried whether our food would run out before we got money to buy more. Never True 08/18/2022 Within the past 6 months the food we bought just didn't last and we didn't have enough money to get more. Never True Residential Stability Answer Date Recor ded What is your housing situation today? I have talya marquez 08/18/2022 How many times have you move d in the past 12 months? Zero (I did not move) 08/18/2022 Paying for Meds Answer Date Recorded Do you have trouble paying for medicines? No 08/18/2022 Paying Utility Bills Answer Date Record ed Do you have trouble paying your heating or elect ricity bill? No 08/18/2022 Transportation Answer Date Recorded Has the lack of transportati on kept you from medical appointments or from getting medications? No 08/18/2022 Digital Access Answer Date Recorded No 07/14/2022 No 07/14/2022 Reliable internet access at home? Not on file 07/14/2022 Device with a working camera? Not on file Sex and Gender Information Value Date Recorded Sex Assigned at Male 08/16/2022 4:16 PM EDT Legal Sex Male 11:32 AM EDT Gender Identity Male 08/16/2022 4:08 PM EDT Sexual Orientation Straight 08/16/2022 4: 16 PM EDT documented as of this encounter Last Filed Vital Signs Vital Sign Reading Time Taken Comments Blood Pressure - - Pulse - - Temperature - - Respiratory Rate - - Oxygen Saturation - - Inhaled Oxygen Concentration - - Weight 86.2 kg (190 lb) 07/26/2024 1:23 PM EDT Height - - Body Mass Index 26.48 07/24/2024 3:50 PM EDT documented in this encounter Plan of Treatment Upcoming Encounters Date Type Department Care Team (Late st Contact Info) Description 07/24/2024 Procedure Pass [facility], [facility] [address] [address] 07/24/2024 Procedure Pass [facility], [facility] [address] [address] 07/16/2025 11:00 AM EDT Appointment [facility], MRI [address] [address] Alka Chiang, GOLF COURSE RANGER [address] [facility]. [address] [address] [email or web address] Clau Lozano MD, MPH [address] [place] [id number] [email or web address] 07/16/2025 12:20 PM EDT Appointment [facility], [facility] [address] [address] Alka Chiang, GOLF COURSE RANGER [address] [place] [address]. [address] [address] [email or web address] Clau Lozano MD, MPH [address] [place] [id number] [email or web address] 07/18/2025 10:45 AM EDT Tele[facility], [facility] at [address] [address] Clau Lozano MD, MPH [address] [place] [phone] [email or web address] documented as of this encounter Visit Diagnoses Not on filedocumented in this encounter Care Teams Pilates Instructor Relationship Specialty Start Date End Date Ester Bryant MD [address] [place] [address] [place] [phone] PCP - General Internal Medicine 01/28/23 Ester Bryant MD [address] [place] [phone] Internal Medicine 08/16/22 Yoni Preston MD [address] [place] [address] Medical Oncology 10/14/23 Robe Qureshi MD [address] [address] Dermatology 07/24/24 documented as of this encounter Additional Source Comments The information contained in this document represents components of the legal health record. It is not the complete legal health record.[facility]
== END 2024-09-12 12:40 | disposition home or self-care (01) ==
LOC: HO.HMCH 11:10
PROVIDERS: PCP Internal Medicine; Visit Provider Internal Medicine
DX: M25.562 Pain in left knee (principal)

== ENCOUNTER 2024-09-13 11:50 | Outpatient (REF) | payer OTHER, SELFPAY ==
--- NOTE | ~2024-09-13 | XR_ITS ---
EXAMINATION: XR KNEE, LEFT CLINICAL INFORMATION: M25.562 - Pain in left knee COMPARISON: None available. TECHNIQUE: Two views of the left knee. FINDINGS: No fracture, dislocation, or suspicious bone lesion. Normal bone mineralization. Normal alignment. Mild medial compartment joint space narrowing. Lateral and patellofemoral compartments appear preserved. No significant suprapatellar joint effusion. Soft tissues appear normal. XR/XR knee LT 2V IMPRESSION: 1. No acute bony abnormalities left knee. 2. Mild medial compartment joint space narrowing. Electronically signed by: Hiro Gates MD 09/13/2024 12:23 PM EDT
--- OUTSIDE RECORDS SUMMARY | 2024-09-13 12:28 | XMS_ITS | Encounter Summary ---
Author Organization [facility] Address [address] [place] [address] Phone Care Team Providers Care Molded Rubber Goods Cutter Name Role Phone Ester Bryant MD Unavailable [phone] Ester Bryant MD Primary Care Provider [phone] Yoni Preston MD Unavailable Robe Qureshi MD Unavailable [phone] Encounter Details Date Type Department Care Team (Late st Contact Info) Description 07/25/2024 Procedure Pass [facility], [facility], MRI 450 [facility], Floor [address] [place] [address] Social History Tobacco Use Types Packs/Day Years [...] high school, GED, job training, learning the Ethiopian language, technical skills, or developing parenting skills)? [...] st Contact Info) Description 07/24/2024 Procedure Pass [facility], [facility] [address] [address] 07/24/2024 Procedure Pass [facility], [facility] [address] [address] 07/16/2025 11:00 AM EDT Appointment [facility], MRI [address] [address] Alka Chiang, HUMAN RESOURCES OFFICE MANAGER 450 [facility]. [address] [address] [email or web address] Clau Lozano MD, MPH [address] [place] [id number] [email or web address] 07/16/2025 12:20 PM EDT Appointment [facility], [facility] [address] [address] Alka Chiang, HUMAN RESOURCES OFFICE MANAGER [address] [place] [address]. [address] [address] [email or web address] Clau Lozano MD, MPH [address] [place] [phone] [email or web address] 07/18/2025 10:45 AM EDT Telemedicine [facility], [facility] at [address] [address] Clau Lozano MD, MPH [address] [place] [address] [email or web address] documented as of this encounter Visit Diagnoses Not on filedocumented in this encounter Care Teams Molded Rubber Goods Cutter Relationship Specialty Start Date End Date Ester Bryant MD [address] [place] [address] [place] [phone] PCP - General Internal Medicine 01/28/23 Ester Bryant MD [address] [place] [phone] Internal Medicine 08/16/22 Yoni Preston MD 3350 [place] [address] Medical Oncology 10/14/23 Robe Qureshi MD [address] [address] Dermatology 07/24/24 documented as of this encounter Additional Source Comments The information contained in this document represents components of the legal health record. It is not the complete legal health record.[facility]
--- OUTSIDE RECORDS SUMMARY | 2024-09-13 12:28 | XMS_ITS | Patient Health Record ---
Author Organization [facility] Address [address] [place] [address] Care Team Providers Care Cuff Setter Name Role Phone Ester Bryant MD Primary Care Provider Tao Alfred [phone] Reason For Referral No Information Medications Medication [...] Problem Screening for malignant neoplasm of colon (248674817) Encounter for screening for malignant neoplasm of colon (Z12.11) Active confirmed Problem Preprocedural examination (032740548170408) Preprocedural examination (Z01.818) Active confirmed Problem Family History of Cancer of Colon (Situation) (114407938) Family history of colon cancer (Z80.0) Active confirmed Plan Of Treatment Pending Test Test Name Order Date Pathology 04/21/2020 Future Test Test Name Order Date COLONOSCOPY 04/10/2020 Insurance Providers Payer Name Payer Address Payer Phone Subscriber Number Group Number Insured Name Patient Relationship to Insured Coverage Start Date Coverage End Date [facility] [employer] [facility] [address] [place] [address] [id number] COLE GARCIA Self - patient is the insured Medical (General) History Medical History History ICD Code Denies AR,DM,CVA,Lung disease,renal dise ase Surgical History Surgery Date(Month/Year)
--- OUTSIDE RECORDS SUMMARY | 2024-09-13 12:28 | XMS_ITS | Clinical Summary ---
Author Organization [facility] Address [address] [place] [address] Care Team Providers Care Local Operator Name Role Phone Unavailable Primary Care Provider [...]
== END 2024-09-13 11:51 | disposition home or self-care (01) ==
LOC: HO.XRAY 11:50
PROVIDERS: PCP Internal Medicine; Visit Provider Internal Medicine
DX: M25.562 Pain in left knee (principal)
CPT/HCPCS: 73560

== ENCOUNTER → 2024-09-13 11:57 | Outpatient (BNV) | payer OTHER, SELFPAY | PROVIDERS: PCP Internal Medicine; Visit Provider Radiology Diagnostic Radiology | DX: M17.12 Unilateral primary osteoarthritis, left knee (principal) | CPT/HCPCS: 73560 ==

== ENCOUNTER 2025-01-29 08:25 | Outpatient (AMB) | payer OTHER, SELFPAY ==
--- NOTE | 2025-01-29 08:31 | MHC.PC.OV ---
Vital Signs 01/29/25 08:32 Height 5 ft 10 in Weight 192 lb BMI 27.5 BP 120/76 Blood Pressure Location Lt brachial Position Sitting Respiration 18 Pulse 69 Pulse Source Pulse Oximeter Temp 97.3 F Temp Source Temporal Artery Scan Pulse Oximetry (%) 98 Oxygen Delivery Method Room Air Intake Visit Reasons: pe Entry Level Chemist Required: No Accompanied by: Self / Same As Patient Allergies No Known Allergies Allergy (Verified 01/29/25 08:31) Medication List - Last Reconciled 01/29/25 by Ester Bryant MD alprazolam 0.25 mg PO BEDTIME PRN calcium carbonate (Calcium 600) 600 mg PO DAILY darolutamide 600 mg PO BID leuprolide acetate (3 month) (Eligard) 22.5 mg subcut [id number] meloxicam 15 mg PO DAILY multivitamin 1 tab PO DAILY sennosides-docusate sodium 8.6-50 mg (Senna Plus) 2 tab-caps (2 x 8.6-50 mg) PO BEDTIME venlafaxine 37.5 mg PO DAILY Tobacco use date assessed: 09/12/24 Dental Screening Dental Screen Date: 09/12/24 HPI pe HPI Details L knee doing good had a scan under ortho OA , doing exercises. dermatology Q 2 years 2025 next schedule HPI Comments History of Present Illness Details History of Present Illness The patient is a 49-year-old male with a history of prostate cancer, Li-Fraumeni syndrome, and generalized anxiety disorder, presenting for a physical exam. He was last seen in August 2024. For his prostate cancer, the patient is on darolutamide and luprolide and follows with hematology-oncology and urology. His PSA level was undetectable in July. The patient has a history of knee pain, and a prior X-ray showed arthritis with no acute bony abnormalities. His last colon test was in 2022, with another test scheduled recently. The patient also has a history of anemia, noted on blood work from July. He is currently taking venlafaxine and indoprazole. Surveillance imaging shows a 1.4 cm T2 hyperintense focus in the neck on MRI, which was unchanged compared to a prior scan from July 2023. Health Maintenance A bone density scan is advised due to potential luprolide side effects. The patient should continue follow-up with gastroenterology. A follow-up is planned in six months, and the patient was instructed to send a message if any issues arise sooner. Social History Results - Labs: Last blood work in July showed anemia. - PSA in July was undetectable. - Tests and Diagnostics: Knee X-ray showed arthritis with no acute bony abnormalities. - MRI of the neck showed a 1.4 cm T2 hyperintense focus, unchanged from July 2023. [facility] Medical History Aortic stenosis Rectal bleeding Overweight (BMI 25.0-29.9) Surgical History No pertinent past surgical history Family History Father No problems noted. Mother No problems noted. Paternal Grandmother No problems noted. Family/Other No problems noted. Paternal Grandfather Colon cancer Social History Housing: Apartment Are you a primary care assistant to a significant other at home: No Do you presently have visiting nurse or other home services: No Alcohol intake: current Alcohol intake frequency: a few times a month Comment: once a week 3-6 drinks Patient Tobacco Use Status: Never used Tobacco e-Cigarette/Vaping Use: Never Used Second Hand Smoke Exposure: No service: No Current occupational status: employed Current occupation: [employer] Current occupational exposures/hazards: No Cognitive needs: No Hearing needs: No Vision needs: No Questionnaire Thrive Questionnaire Date Thrive assessed: 07/27/24 What is your living situation today?: I have a steady place to live Within the past 12 months, did the food you bought not last and you didn't have the money to get more?: Never true Within the past 12 months, did you worry whether your food would run out before you got money to buy more?: Never true Do you have trouble paying for medicines?: No Do you have trouble getting transportation to medical appointments?: No Do you have trouble paying your heating and electricity bill?: No Do you have trouble taking care of your child, family member or friend?: No Do you have trouble with day-to-day activities such as bathing, preparing meals, shopping, managing finances, etc.?: No Are you currently unemployed and looking for a job?: No Are you interested in more education?: No Please select the resources that you would like help with: None Currently or been in a relationship where the following occur: No concerns reported THRIVE Score: 0 PHILIP-7 AMB Questionnaire PHILIP-7 Date PHILIP - 7 assessed: 08/03/24 Source: Developed by Drs. Tao Schultz, Deedee Hernandez, Clemente Issa and colleagues, with an educational stas from [employer]. Review of Systems Narrative Review of Systems - Musculoskeletal: Reports knee pain. Const Denies poor appetite and Denies weakness Eyes Denies no additional complaints ENT Reports Normal hearing present, Denies dizziness, Denies nasal congestion, Denies tinnitus and Denies sore throat Card Denies chest pain, Denies syncope, Denies rapid heart rate and Denies dyspnea Resp Denies cough and Denies dyspnea GI Denies change in stool character, Reports constipation, Denies diarrhea, Denies nausea and Denies vomiting Denies dysuria and Denies urinary frequency Neuro Reports Normal hearing present, Denies confusion, Denies dizziness, Denies syncope and Denies weakness Psych Denies confusion Physical exam (Primary Care) Vital Signs: Last Vital Signs Temp 97.3 F 01/29/25 08:32 Pulse 69 01/29/25 08:32 Resp 18 01/29/25 08:32 BP 120/76 01/29/25 08:32 Pulse Ox 98 01/29/25 08:32 Oxygen Delivery Method Room Air 01/29/25 08:32 BMI result Body Mass Index 27.5 Tobacco/Smoking Status: Tobacco use Status Tobacco use date assessed 09/12/24 01/29/25 08:38 Patient Tobacco Use Status Never used Tobacco 01/29/25 08:38 Tobacco use type 09/18/24 09:06 e-Cigarette/Vaping Use Never Used 01/29/25 08:38 Thrive Assessment: Date of Thrive Assessment Date Thrive assessed 07/27/24 01/29/25 08:38 Currently or been in a relationship where the following occur: No concerns reported Narrative Physical Exam General: Cooperative, healthy appearing, comfortable, no acute distress and well developed Orientation: Patient oriented x3 Limitations: No limitations Head: Normal to inspection Ears: Hearing grossly normal bilaterally Nose: Normal external nose present Face and sinus: Normal facial exam Eyes: Appearance normal, both eyes and all related structures Neck: 1.4 cm T2 hyperintense focus on the neck from the MRI, not changed compared to July 2023 Respiratory: Normal respiratory effort and able to speak in complete sentences. Clear to auscultation bilaterally Cardiovascular: Regular rate and rhythm. Normal S1 and S2 GI: Normal to inspection. Soft to palpation and nontender Skin: No rashes or lesions noted Neuro: Patient oriented x3 Extremities: Normal to inspection, knee pain with X-ray showing arthritis with no acute bony abnormalities Const General: No confusion Orientation/consciousness: No confusion HENMT Head: Yes normocephalic Ears: external ears normal and TM's normal bilaterally Face and sinus: Yes normal facial exam Mouth: moist mucous membranes Throat: Yes tonsils normal Eyes Conjunctivae: conjunctivae normal Pupils: Equal, round and reactive pupils present and Pupil accommodation reflex normal Direct Ophthalmoscopy: normal light reflex Neck Neck: No lymphadenopathy Thyroid: Thyroid normal Chest Chest palpation & inspection: normal inspection of the chest Resp Effort & Inspection: normal respiratory effort and no audible wheezes Auscultation: clear to auscultation bilaterally, no crackles, no wheezes and lung sounds not diminished Cardio Rate: regular rate Rhythm: regular rhythm Peripheral pulses: radial pulses present and dorsalis pedis present GI Palpation (GI): no masses Auscultation: normal bowel sounds and normoactive bowel sounds Rectal Exam - Male: Yes deferred Skin General skin exam: no rashes or lesions noted Rashes: no rashes Neuro General: No confusion Cranial nerves: Yes Equal, round and reactive pupils present and Yes Normal hearing present Cognition (Neuro): normal cognition Gait exam (Neuro): Normal gait present Motor exam (neuro): 5/5 motor strength present throughout Deep tendon reflexes (DTR's): Right brachioradialis reflex intensity grade: 2+, Left brachioradialis reflex intensity grade: 2+, Right patellar reflex intensity grade: 2+ and Left patellar reflex intensity grade: 2+ Extrem General: No edema Coding Level of Care Code Est Pt Prev Care 40-64y([address]8584) Diagnoses Annual physical exam Z00.00 Li-Fraumeni syndrome Z15.01 Prostate cancer C61 Colon cancer screening Z12.11 Generalized anxiety disorder F41.1 Assessment & Plan Assessment & Plan (1) Annual physical exam: Code(s): Z00.00 - Encounter for general adult medical examination without abnormal findings Category: Medical Plan: Patient is advised to eat healthy, keep well hydrated, keep active and have adequate sleep. 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 Li-Fraumeni syndrome is also known as the Sarcoma, Breast, Leukemia, and Adrenal Gland (SBLA) cancer syndrome. This cancer predisposition syndrome is inherited as an autosomal dominant disorder and is associated with abnormalities in the tumor protein p53 gene (TP53). Code(s): Z15.01 - Genetic susceptibility to malignant neoplasm of breast Category: Medical Plan: Patient is under surveillance from [facility]. Advised Dermatology, cervical neck lymph node, MRI, (3) Prostate cancer: Code(s): C61 - Malignant neoplasm of prostate Category: Medical Plan: Continuing to monitor follows up with urology on darolutamide remind and leuprolide, bone density advised (4) Colon cancer screening: Comment: scheduled for 12/2024 / Kathy Code(s): Z12.11 - Encounter for screening for malignant neoplasm of colon Category: Medical Plan: Patient follows up with Gastroenterology (5) Generalized anxiety disorder: Code(s): F41.1 - Generalized anxiety disorder Category: Medical Plan: Continuing venlafaxine and alprazolam Plan Plan Patient was informed and verbally consented to the use of an ambient scribe for clinic note documentation during this visit. 1. Li-Fraumeni Syndrome The patient is under surveillance at [facility] for Li-Fraumeni syndrome. A dermatology referral was advised for surveillance purposes. 2. Cervical Lymphadenopathy Advised to continue monitoring the cervical neck lymph node via MRI. 3. Generalized Anxiety Disorder Continue taking venlafaxine as prescribed. 4. Prostate Cancer The patient will continue his current treatment with darolutamide and luprolide for prostate cancer. He is advised to follow up with urology for ongoing management. Discussion Notes I reviewed the patient's note from hematology/oncology dated August 31, 2024. We discussed his ongoing treatments for prostate cancer, including darolutamide and luprolide, and the importance of follow-up with urology. I advised a bone density scan due to the risk of osteoporosis as a side effect of luprolide. We also reviewed surveillance plans, including ongoing monitoring of a cervical neck lymph node with MRI and follow-ups with dermatology and gastroenterology. I advised the patient to continue his current medications, including venlafaxine and indoprazole. We scheduled a follow-up appointment for six months, and I instructed him to contact me via message if any concerns arise before then. Patient Instructions - Continue taking your current medications, including darolutamide, luprolide, venlafaxine, and indoprazole, as prescribed. - Follow up with your urology specialist for your prostate cancer care. - Schedule a bone density scan to check for osteoporosis, which can be a side effect of your luprolide medication. - Follow up with a dermatology (skin) specialist as recommended for your health screening. - Continue to see your gastroenterology specialist as planned. - Your next follow-up appointment in this office is in six months. - If you have any concerns or new problems before your next appointment, please send a message through the patient portal. Orders: Orders Comprehensive Met. Panel Today C61 - Malignant neoplasm of prostate Vitamin B12 and Folate Today C61 - Malignant neoplasm of prostate Thyroid Stimulating Hormone Today C61 - Malignant neoplasm of prostate Magnesium Today C61 - Malignant neoplasm of prostate PSA,Total (Free>4and<10) Today C61 - Malignant neoplasm of prostate Vitamin D 25-OH Total Today C61 - Malignant neoplasm of prostate Hemoglobin A1c Today C61 - Malignant neoplasm of prostate UA CC w/rflx Micro + Cult Today C61 - Malignant neoplasm of prostate, R30.0 - Dysuria Reticulocyte Count Today C61 - Malignant neoplasm of prostate CA echo transthoracic complete Today R94.30 - Abnormal result of cardiovascular function study, unspecified Complete Blood Count Auto Diff Today C61 - Malignant neoplasm of prostate Free T4 (Free Thyroxine) Today C61 - Malignant neoplasm of prostate Ferritin Today C61 - Malignant neoplasm of prostate Lipid Panel Today C61 - Malignant neoplasm of prostate, E78.00 - Pure hypercholesterolemia, unspecified Medications: Refilled alprazolam 0.25 mg PO BEDTIME PRN 20 tabs 0RF anxiety F41.1 - Generalized anxiety disorder
[2025-01-29 08:32] VITALS: BP 120/76; PULSE 69; RESP 18; TEMP 36.3; O2SAT 98; BMI 27.5
--- OUTSIDE RECORDS SUMMARY | 2025-01-29 08:49 | XMS_ITS | Encounter Summary ---
Author Organization [facility] Address [address] [place] [address] Phone Care Team Providers Care Nurse Coordinator Name Role Phone Ester Bryant MD Unavailable [phone] Ester Bryant MD Primary Care Provider [phone] Yoni Preston MD Unavailable [phone] Robe Qureshi MD Unavailable Encounter Details Date Type Department Care Team (Late st Contact Info) Description 07/25/2024 Procedure Pass [facility], [facility] [place], MRI 450 [facility], Floor L1 [place] [address] Social History Tobacco Use Types Packs/Day Years [...] high school, GED, job training, learning the Northern Irish language, technical skills, or developing parenting skills)? [...] st Contact Info) Description 07/24/2024 Procedure Pass [facility], [facility] [address] [address] 07/24/2024 Procedure Pass [facility], [facility] [address] [address] 07/16/2025 11:05 AM EDT Appointment [facility], [facility] [address] [address] Alka Chiang, ASSOCIATE VICE PRESIDENT [address] [facility] [address] Beverly@[facility] Clau Lozano MD, MPH [address] [place] [address] Quan@[facility] 07/16/2025 12:15 PM EDT Appointment [facility], [address] [address] Alka Chiang, ASSOCIATE VICE PRESIDENT 450 [facility]. [address] [address] Beverly@[facility] Clau Lozano MD, MPH [address] [place] [address] Quan@[facility] 07/18/2025 10:45 AM EDT Telemedicine [facility], [facility] at [address] [address] Clau Lozano MD, MPH [address] [place] [address] Quan@[facility] documented as of this encounter Visit Diagnoses Not on filedocumented in this encounter Care Teams Nurse Coordinator Relationship Specialty Start Date End Date Ester Bryant MD [address] [place] [address] Drive [address] [place] [phone] PCP - General Internal Medicine 01/28/23 Ester Bryant MD [address] [place] [address] Drive [address] [place] [address] Internal Medicine 08/16/22 Yoni Preston MD [address]50 [place] [address] Medical Oncology 10/14/23 Robe Qureshi MD [address] [address] Dermatology 07/24/24 documented as of this encounter Additional Source Comments The information contained in this document represents components of the legal health record. It is not the complete legal health record.[facility]
--- OUTSIDE RECORDS SUMMARY | 2025-01-29 08:49 | XMS_ITS | Clinical Summary ---
Author Organization [facility] [place] [address] Care Team Providers Care Cloth Measurer Name Role Phone Unavailable Primary Care Provider [...] of 3 - 19+ 3-dose series) 1993 Depression Screening 02/15/2024 Pneumococcal Vaccine: 50+ Ye ars (1 of 1 - PCV) 2024 Zoster Vaccines (1 of 2) 2024 COVID-19 Vaccine (1 - 2024-2 6 season) 2024 Influenza Vaccine (#1) 2024 RSV Immunization Adult Patie nts (1 - 1-dose 75+ series) 2049 HIB Vaccines Aged Out No longer eligi [...]
--- OUTSIDE RECORDS SUMMARY | 2025-01-29 08:50 | XMS_ITS | Encounter Summary ---
Author Organization [facility] Address [address] [place] [address] Phone Care Team Providers Care Insurance Loss Adjuster Name Role Phone Ester Bryant MD Unavailable [phone] Ester Braynt MD Primary Care Provider Yoni Preston MD Unavailable Robe Qureshi MD Unavailable [phone] Encounter Details Date Type Department Care Team (Late st Contact Info) Description 06/23/2023 Procedure Pass [facility] [place] [facility] [place], MRI 300 [facility] 4th [place] [address] Social History Tobacco Use Types Packs/Day Years [...] high school, GED, job training, learning the Equatorial [place]inean language, technical skills, or developing parenting skills)? [...] PM EDT documented as of this encounter Plan of Treatment Upcoming Encounters Date Type Department Care Team (Late st Contact Info) Description 07/24/2024 Procedure Pass [facility], [facility] [address] [address] 07/24/2024 Procedure Pass [facility], [facility] [address] [address] 07/16/2025 11:05 AM EDT Appointment [facility], [facility] [address] [address] Alka Chiang, ADMIN PROG COORD [address] [place] [address] Beverly@[email or web address]. [facility] Clau Lozano MD, MPH [address] [place] [address] Quan@[facility] 07/16/2025 12:15 PM EDT Appointment [facility], [facility] [address] [address] Alka Chiang CNP 450 [facility]. [address] [place] [address] Beverly@[facility] Clau Lozano MD, MPH [address] [place] [address] Quan@[facility] 07/18/2025 10:45 AM EDT Telemedicine [facility], [facility] [place] [address] [address] Clau Lozano MD, MPH [address] [place] [address] Quan@[facility] documented as of this encounter Visit Diagnoses Not on filedocumented in this encounter Care Teams Insurance Loss Adjuster Relationship Specialty Start Date End Date Ester Bryant MD [address] [facility] [address] [place] [phone] PCP - General Internal Medicine 01/28/23 Ester Bryant MD 2 [facility] [address] [place] [phone] Internal Medicine 08/16/22 Yoni Preston MD [address] [place] [address] Medical Oncology 10/14/23 Robe Qureshi MD [address] [address] Dermatology 07/24/24 documented as of this encounter Additional Source Comments The information contained in this document represents components of the legal health record. It is not the complete legal health record.[facility]
--- OUTSIDE RECORDS SUMMARY | 2025-01-29 08:50 | XMS_ITS | Patient Health Record ---
Author Organization [facility] Address [address] [place] [address] Care Team Providers Care Electrical Accessories I Assembler Name Role Phone Ester Bryant MD Primary Care Provider Tao Alfred [phone] Reason For Referral No Information Medications Medication SIG (Take, Route, Fr equency, Duration) Notes Start Date End Date Status Multivitamin - Tablet 1 tablet Orally On ce a day; Duration: 30 day(s) Active Immunizations Vaccine Route Administration Date Status Comme nts Influenza Unknown 11/15/2019 Administered Social History Tobacco Use: Social History Observation Description Date Details (start date - stop date) Never Smoker NA - NA Social History Drugs/Alcohol: Social Info Question Answer Notes Alcohol Screen Did you have a drink containing alcohol in the past year? Yes How often did you have a drink containing alcohol in the past year? Monthly or less (1 point) How many drinks did you have on a typical day when you were drinking in the past year? 1 or 2 drinks (0 point) How often did you have 6 or more drinks on one occasion in the past year? 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 [employer] Section Notes: Nonsmoker; no sig alcohol Problems Problem Type SNOMED Code ICD Code Onset Dates Problem Status W/U Status Risk Notes Problem Screening for malignant neoplasm of colon (511974528) Encounter for screening for malignant neoplasm of colon (Z12.11) Active confirmed Problem Preprocedural examination (724671386328900) Preprocedural examination (Z01.818) Active confirmed Problem Family History of Cancer of Colon (Situation) (321954039) Family history of colon cancer (Z80.0) Active confirmed Plan Of Treatment Pending Test Test Name Order Date Pathology 04/21/2020 Future Test Test Name Order Date COLONOSCOPY 04/10/2020 Insurance Providers Payer Name Payer Address Payer Phone Subscriber Number Group Number Insured Name Patient Relationship to Insured Coverage Start Date Coverage End Date [facility] [employer] [facility] [address] [place] [address] [id number] COLE GARCIA Self - patient is the insured Medical (General) History Medical History History ICD Code Denies MO,DM,CVA,Lung disease,renal dise ase Surgical History Surgery Date(Month/Year)
--- OUTSIDE RECORDS SUMMARY | 2025-01-29 08:50 | XMS_ITS | Encounter Summary ---
Author Organization [facility] Address [address] [place] [address] Phone Care Team Providers Care Technical Staff Engineer Name Role Phone Ester Bryant MD Unavailable [phone] Ester Bryant MD Primary Care Provider Yoni Preston MD Unavailable Robe Qureshi MD Unavailable [phone] Encounter Details Date Type Department Care Team (Late st Contact Info) Description 06/23/2023 Procedure Pass [facility] [place] [facility] [place], MRI 300 [facility] 4th [place] [address] Social History Tobacco Use Types Packs/Day Years [...] high school, GED, job training, learning the Zambian language, technical skills, or developing parenting skills)? [...] st Contact Info) Description 07/24/2024 Procedure Pass [facility], [facility] [address] [address] 07/24/2024 Procedure Pass [facility], [facility] [address] [address] 07/16/2025 11:05 AM EDT Appointment [facility], [facility] [address] [address] Alka Chiang, HIRED HAND [address] [place] [address] Beverly@[email or web address]. [facility] Clau Lozano MD, MPH [address] [place] [address] Quan@[facility] 07/16/2025 12:15 PM EDT Appointment [facility], [facility] [address] [address] Alka Chiang CNP 450 [facility]. [address] [place] [address] Beverly@[facility] Clau Lozano MD, MPH [address] [place] [address] Quan@[facility] 07/18/2025 10:45 AM EDT Telemedicine [facility] Genetics [facility], [facility] [place] [address] [address] Clau Lozano MD, MPH [address] [place] [address] Quan@[facility] documented as of this encounter Visit Diagnoses Not on filedocumented in this encounter Care Teams Technical Staff Engineer Relationship Specialty Start Date End Date Ester Bryant MD [address] [facility] [address] [place] [phone] PCP - General Internal Medicine 01/28/23 Ester Brynat MD 2 [facility] [address] [place] [phone] Internal Medicine 08/16/22 Yoni Preston MD [address] [place] [address] Medical Oncology 10/14/23 Robe Qureshi MD [address] [address] Dermatology 07/24/24 documented as of this encounter Additional Source Comments The information contained in this document represents components of the legal health record. It is not the complete legal health record.[facility]
--- OUTSIDE RECORDS SUMMARY | 2025-01-29 08:50 | XMS_ITS | Encounter Summary ---
Author Organization [facility] Address [address] [facility] [address] [place] [address] Phone Care Team Providers Care Tier And Detonator Name Role Phone Ester Bryant MD Unavailable [phone] Ester Bryant MD Primary Care Provider [phone] Yoni Preston MD Unavailable Robe Qureshi MD Unavailable [phone] Encounter Details Date Type Department Care Team (Late st Contact Info) Description 08/14/2024 Documentation [facility], [facility] [place] [facility] [place] 300 [facility] 3rd [place] [address] Alka Chiang, LEAD C DEVELOPER 450 [facility] 1047 [place] [address] [email or web address] Social History Tobacco Use Types Packs/Day Years [...] high school, GED, job training, learning the Argentine language, technical skills, or developing parenting skills)? [...] your housing situation today? I have talya sing 08/18/2022 How many times have you move [...] st Contact Info) Description 07/24/2024 Procedure Pass [facility], [facility] [address] [address] 07/24/2024 Procedure Pass [facility], [facility] [address] [address] 07/16/2025 11:05 AM EDT Appointment [facility], [facility] [address] [address] Alka Chiang, LEAD C DEVELOPER 450 [facility]. [address] [address] Beverly@[facility] Clau Lozano MD, MPH [address] [place] [address] Quan@[facility] 07/16/2025 12:15 PM EDT Appointment [facility], [facility] [address] [address] Alka Chiang, LEAD C DEVELOPER 450 [facility]. [address] [address] Beverly@[facility] Clau Lozano MD, MPH [address] [place] [address] Quan@[facility] 07/18/2025 10:45 AM EDT Telemedicine [facility], [facility] [place] [address] [address] Clau Lozano MD, MPH [address] [place] [address] Quan@[facility] documented as of this encounter Visit Diagnoses Not on filedocumented in this encounter Care Teams Tier And Detonator Relationship Specialty Start Date End Date Ester Bryant MD 2 [facility] [address] [place] [phone] PCP - General Internal Medicine 01/28/23 Ester Bryant MD [address] [place] [address] Drive [address] [place] [address] Internal Medicine 08/16/22 Yoni Preston MD 3350 [place] [address] Medical Oncology 10/14/23 Robe Qureshi MD [address] [address] Dermatology 07/24/24 documented as of this encounter Additional Source Comments The information contained in this document represents components of the legal health record. It is not the complete legal health record.[facility]
--- OUTSIDE RECORDS SUMMARY | 2025-01-29 08:50 | XMS_ITS | Encounter Summary ---
Author Organization [facility] Address [address] [facility] [address] [place] [address] Phone Care Team Providers Care Ski Technician Name Role Phone sEter Bryant MD Unavailable [phone] Ester Bryant MD Primary Care Provider [phone] Yoni Preston MD Unavailable Robe Qureshi MD Unavailable [phone] Encounter Details Date Type Department Care Team (Late st Contact Info) Description 08/14/2024 Telephone [facility], [facility] [place] [facility] [place] 300 [facility] 3rd [place] [address] Alka Chiang, JOB HONER 450 [facility] 1047 [place] [address] Beverly@[email or web address] Social History Tobacco Use Types [...] high school, GED, job training, learning the Yemeni language, technical skills, or developing parenting skills)? [...] st Contact Info) Description 07/24/2024 Procedure Pass [facility] [address] [address] 07/24/2024 Procedure Pass [facility], [facility] [address] [address] 07/16/2025 11:05 AM EDT Appointment [facility], [facility] [address] [address] Alka Chiang, JOB HONER 450 [facility]. [address] [address] Beverly@[email or web address] Clau Lozano MD, MPH [address] [place] [address] Quan@[facility] 07/16/2025 12:15 PM EDT Appointment [facility], [facility] [address] [address] Alka Chiang, JOB HONER 450 [facility]. [address] [address] Beverly@[email or web address] Clau Lozano MD, MPH [address] [place] [address] Quan@[facility] 07/18/2025 10:45 AM EDT Telemedicine [facility], [facility] [place] [address] [address] Clau Lozano MD, MPH [address] [place] [address] Quan@[facility] documented as of this encounter Visit Diagnoses Not on filedocumented in this encounter Care Teams Ski Technician Relationship Specialty Start Date End Date Ester Bryant MD 2 [facility] [address] [place] [phone] PCP - General Internal Medicine 01/28/23 Ester Bryant MD [address] [place] [address] Drive [address] [place] [address] Internal Medicine 08/16/22 Yoni Preston MD 3350 [place] [address] Medical Oncology 10/14/23 Rboe Qureshi MD [address] [address] Dermatology 07/24/24 documented as of this encounter Additional Source Comments The information contained in this document represents components of the legal health record. It is not the complete legal health record.[facility]
--- OUTSIDE RECORDS SUMMARY | 2025-01-29 08:50 | XMS_ITS | Encounter Summary ---
Author Organization [facility] Address [address] [facility] [address] [place] [address] Phone Care Team Providers Care Equipment Tester Name Role Phone Ester Bryant MD Unavailable [phone] Ester Bryant MD Primary Care Provider [phone] Yoni Preston MD Unavailable Robe Qureshi MD Unavailable [phone] Encounter Details Date Type Department Care Team (Late st Contact Info) Description 07/25/2024 Telephone [facility], [facility] [place] [facility] [place] 300 [facility] 3rd [place] [address] Alka Chiang, MANAGEMENT ADVISOR 450 [facility] 1047 [place] [address] Beverly@[email or web address] Social History Tobacco Use Types Packs/Day Years [...] high school, GED, job training, learning the [place] Citizen language, technical skills, or developing parenting skills)? [...] st Contact Info) Description 07/24/2024 Procedure Pass [facility], [facility] [address] [address] 07/24/2024 Procedure Pass [facility], [facility] [address] [address] 07/16/2025 11:05 AM EDT Appointment [facility], [facility] [address] [address] Alka Chiang, MANAGEMENT ADVISOR 450 [facility]. [address] [address] Beverly@[email or web address] Clau Lozano MD, MPH [address] [place] [address] Quan@[facility] 07/16/2025 12:15 PM EDT Appointment [facility], [facility] [address] [address] Alka Chiang, MANAGEMENT ADVISOR 450 [facility]. [address] [address] Beverly@[facility] Clau Lozano MD, MPH [address] [place] [address] Quan@[facility] 07/18/2025 10:45 AM EDT Telemedicine [facility], [facility] [place] [address] [address] Clau Lozano MD, MPH [address] [place] [address] Quan@[facility] documented as of this encounter Visit Diagnoses Not on filedocumented in this encounter Care Teams Equipment Tester Relationship Specialty Start Date End Date Ester Bryant MD 2 [facility] [address] [place] [phone] PCP - General Internal Medicine 01/28/23 Ester Bryant MD [address] [place] [address] Drive [address] [place] [address] Internal Medicine 08/16/22 Yoni Preston MD 3350 [place] [address] Medical Oncology 10/14/23 Robe Qureshi MD [address] [address] Dermatology 07/24/24 documented as of this encounter Additional Source Comments The information contained in this document represents components of the legal health record. It is not the complete legal health record.[facility]
--- OUTSIDE RECORDS SUMMARY | 2025-01-29 08:50 | XMS_ITS | Encounter Summary ---
Author Organization [facility] Address [address] [place] [address] Phone Care Team Providers Care Propagator Name Role Phone Ester Bryant MD Unavailable [phone] Ester Bryant MD Primary Care Provider Yoni Preston MD Unavailable Robe Qureshi MD Unavailable [phone] Encounter Details Date Type Department Care Team (Late st Contact Info) Description 08/05/2023 Procedure Pass [facility] [place] [facility] [place], MRI [address] [facility] 4th [place] [address] Social History Tobacco Use Types Packs/Day Years [...] high school, GED, job training, learning the [place] Islander language, technical skills, or developing parenting skills)? [...] st Contact Info) Description 07/24/2024 Procedure Pass [facility], [facility] [address] [address] 07/24/2024 Procedure Pass [facility], [facility] [address] [address] 07/16/2025 11:05 AM EDT Appointment [facility], [facility] [address] [address] Alka Chiang, CAR SALTER [address] [place] [address] Beverly@[email or web address] Clau Lozano MD, MPH [address] [place] [address] Quan@[facility] 07/16/2025 12:15 PM EDT Appointment [facility], [facility] [address] [address] Alka Chiang CNP 450 [facility]. [place] [address] [place] [address] Beverly@[facility] Clau Lozano MD, MPH [address] [place] [address] Quan@[facility] 07/18/2025 10:45 AM EDT Telemedicine [facility], [facility] [place] [address] [address] Clau Lozano MD, MPH [address] [place] [address] Quan@[facility] documented as of this encounter Visit Diagnoses Not on filedocumented in this encounter Care Teams Propagator Relationship Specialty Start Date End Date Ester Bryant MD [address] [facility] [address] [place] [phone] PCP - General Internal Medicine 01/28/23 Ester Bryant MD 2 [facility] [address] [place] [phone] Internal Medicine 08/16/22 Yoni Preston MD [address] [place] [address] Medical Oncology 10/14/23 Robe Qureshi MD [address] [address] Dermatology 07/24/24 documented as of this encounter Additional Source Comments The information contained in this document represents components of the legal health record. It is not the complete legal health record.[facility]
--- OUTSIDE RECORDS SUMMARY | 2025-01-29 08:50 | XMS_ITS | Encounter Summary ---
Author Organization [facility] Address [address] [place] [address] Phone Care Team Providers Care Artist'S Model Name Role Phone Ester Bryant MD Unavailable [phone] Ester Bryant MD Primary Care Provider Yoni Preston MD Unavailable Robe Qureshi MD Unavailable [phone] Encounter Details Date Type Department Care Team (Late st Contact Info) Description 08/05/2023 Procedure Pass [facility] [place] [facility] [place], MRI 300 [facility] 4th [place] [address] Social History Tobacco Use Types Packs/Day Years [...] high school, GED, job training, learning the Peruvian language, technical skills, or developing parenting skills)? [...] st Contact Info) Description 07/24/2024 Procedure Pass [facility], [facility] [address] [address] 07/24/2024 Procedure Pass [facility], [facility] [address] [address] 07/16/2025 11:05 AM EDT Appointment [facility], [facility] [address] [address] Alka Chiang, TAILOR HELPER [address] [place] [address] Beverly@[facility] Clau Lozano MD, MPH [address] [place] [address] Quan@[facility] 07/16/2025 12:15 PM EDT Appointment [facility], [facility] [address] [address] Alka Chiang CNP 450 [facility]. [address] [place] [address] Beverly@[facility] Clau Lozano MD, MPH [address] [place] [address] Quan@[facility] 07/18/2025 10:45 AM EDT [facility], [facility] [place] [address] [address] Clau Lozano MD, MPH [address] [place] [address] Quan@[facility] documented as of this encounter Visit Diagnoses Not on filedocumented in this encounter Care Teams Artist'S Model Relationship Specialty Start Date End Date Ester Bryant MD [address] [facility] [address] [place] [phone] PCP - General Internal Medicine 01/28/23 Ester Bryant MD 2 [facility] [address] [place] [phone] Internal Medicine 08/16/22 Yoni Preston MD [address] [place] [address] Medical Oncology 10/14/23 Robe Qureshi MD [address] [address] Dermatology 07/24/24 documented as of this encounter Additional Source Comments The information contained in this document represents components of the legal health record. It is not the complete legal health record.[facility]
== END 2025-01-29 09:11 | disposition home or self-care (01) ==
LOC: HO.HMCH 08:26
PROVIDERS: PCP Internal Medicine; Visit Provider Internal Medicine
DX: Z00.00 Encounter for general adult medical examination without abnormal findings (principal); Z15.01 Genetic susceptibility to malignant neoplasm of breast; C61 Malignant neoplasm of prostate; Z12.11 Encounter for screening for malignant neoplasm of colon; F41.1 Generalized anxiety disorder

== ENCOUNTER 2025-02-13 08:05 | Outpatient (REF) | payer OTHER, SELFPAY ==
--- OUTSIDE RECORDS SUMMARY | 2025-02-13 08:10 | XMS_ITS | Encounter Summary ---
Author Organization [facility] Address [address] [facility] [address] [place] [address] Phone Care Team Providers Care Traveling Storekeeper Name Role Phone Ester Bryant MD Unavailable [phone] Ester Bryant MD Primary Care Provider [phone] Yoni Preston MD Unavailable [phone] Robe Qureshi MD Unavailable [phone] Encounter Details Date Type Department Care Team (Late st Contact Info) Description 07/25/2024 Telephone [facility], [place] [facility] [place] [facility] [place] 300 [facility] 3rd [place] [address] Alka Chiang, UTILIZATION SPECIALIST 450 [facility] 1047 [place] [address] Beverly@[email or web address] Social History Tobacco Use Types [...] high school, GED, job training, learning the Brazilian language, technical skills, or developing parenting skills)? [...] st Contact Info) Description 07/24/2024 Procedure Pass [facility], [facility] [address] [address] 07/24/2024 Procedure Pass [facility], [facility] [address] [address] 07/16/2025 11:05 AM EDT Appointment [facility], [facility] [address] [address] Alka Chiang, UTILIZATION SPECIALIST 450 [facility] [address] Beverly@[facility] Clau Lozano MD, MPH [address] [place] [address] Quan@[facility] 07/16/2025 12:15 PM EDT Appointment [facility], [facility] [address] [address] Alka Chiang, UTILIZATION SPECIALIST 450 [facility]. [address] [address] Beverly@[facility] Clau Lozano MD, MPH [address] [place] [address] Quan@[facility] 07/18/2025 10:45 AM EDT Telemedicine [facility], [facility] [place] [address] [address] Clau Lozano MD, MPH [address] [place] [address] Quan@[facility] documented as of this encounter Visit Diagnoses Not on filedocumented in this encounter Care Teams Traveling Storekeeper Relationship Specialty Start Date End Date Ester Bryant MD 2 [facility] [address] [place] [phone] PCP - General Internal Medicine 01/28/23 Ester Bryant MD [address] [place] [address] Drive [address] [place] [address] Internal Medicine 08/16/22 Yoni Preston MD 3350 [place] [address] Medical Oncology 10/14/23 Robe Qureshi MD [address] [address] Dermatology 07/24/24 documented as of this encounter Additional Source Comments The information contained in this document represents components of the legal health record. It is not the complete legal health record.[facility]
--- OUTSIDE RECORDS SUMMARY | 2025-02-13 08:10 | XMS_ITS | Encounter Summary ---
Author Organization [facility] Address [address] [place] [address] Phone Care Team Providers Care Dairy Feed Mixing Operator Name Role Phone Ester Bryant MD Unavailable [phone] Ester Bryant MD Primary Care Provider Yoni Preston MD Unavailable [phone] Robe Qureshi MD Unavailable [phone] Encounter Details Date Type Department Care Team (Late st Contact Info) Description 08/05/2023 Procedure Pass [facility] [place] [facility] [place], MRI 300 [facility] 4th [place] [address] Social History Tobacco Use Types Packs/Day Years [...] high school, GED, job training, learning the New Zealander language, technical skills, or developing parenting skills)? [...] st Contact Info) Description 07/24/2024 Procedure Pass [facility], [facility] [address] [address] 07/24/2024 Procedure Pass [facility], [facility] [address] [address] 07/16/2025 11:05 AM EDT Appointment [facility], [facility] [address] [address] Alka Chiang, SOLUTIONS ANALYST [address] [place] [address] Beverly@[email or web address]. [facility] Clau Lozano MD, MPH [address] [place] [address] Quan@[facility] 07/16/2025 12:15 PM EDT Appointment [facility], [facility] [address] [address] Alka Chiang CNP 450 [employer]. [address] [place] [address] Beverly@[facility] Clau Lozano MD, MPH [address] [place] [address] Quan@[facility] 07/18/2025 10:45 AM EDT Telemedicine [facility], [facility] [place] [address] [address] Clau Lozano MD, MPH [address] [place] [address] Quan@[facility] documented as of this encounter Visit Diagnoses Not on filedocumented in this encounter Care Teams Dairy Feed Mixing Operator Relationship Specialty Start Date End Date Ester Bryant MD 2 [facility] [address] [place] [phone] PCP - General Internal Medicine 01/28/23 Ester Bryant MD 2 [facility] [address] [place] [phone] Internal Medicine 08/16/22 Yoni Preston MD [address] [place] [address] Medical Oncology 10/14/23 Robe Qureshi MD [address] [address] Dermatology 07/24/24 documented as of this encounter Additional Source Comments The information contained in this document represents components of the legal health record. It is not the complete legal health record.[facility]
--- OUTSIDE RECORDS SUMMARY | 2025-02-13 08:10 | XMS_ITS | Encounter Summary ---
Author Organization [facility] Address [address] [employer] [address] [facility] [address] [place] [address] Phone Care Team Providers Care Director Of Instruction Name Role Phone Ester Bryant MD Unavailable [phone] Ester Bryant MD Primary Care Provider [phone] Yoni Preston MD Unavailable [phone] Robe Qureshi MD Unavailable [phone] Encounter Details Date Type Department Care Team (Late st Contact Info) Description 08/14/2024 Telephone [facility], [place] [facility] [place] [facility] [place] 300 [facility] 3rd [place] [address] Alak Chiang, SHUTTLE CAR OPERATOR 450 [facility] 1047 [place] [address] Beverly@[email or web address] Social History Tobacco Use Types Packs/Day [...] high school, GED, job training, learning the Faroese language, technical skills, or developing parenting skills)? [...] st Contact Info) Description 07/24/2024 Procedure Pass [facility], [facility] [address] [address] 07/24/2024 Procedure Pass [facility], [facility] [address] [address] 07/16/2025 11:05 AM EDT Appointment [facility], [facility] [address] [address] Alka Chiang, SHUTTLE CAR OPERATOR 450 [facility] [address] Beverly@[facility] Clau Lozano MD, MPH [address] [place] [address] Quan@[email or web address] 07/16/2025 12:15 PM EDT Appointment [facility], [facility] [address] [address] Alka Chiang, SHUTTLE CAR OPERATOR 450 [facility]. [address] [address] Beverly@[facility] Clau Lozano MD, MPH [address] [place] [address] Quan@[facility] 07/18/2025 10:45 AM EDT Telemedicine [facility], [facility] [place] [address] [address] Clau Lozano MD, MPH [address] [place] [address] Quan@[facility] documented as of this encounter Visit Diagnoses Not on filedocumented in this encounter Care Teams Director Of Instruction Relationship Specialty Start Date End Date Ester Bryant MD 2 [facility] [address] [place] [phone] PCP - General Internal Medicine 01/28/23 Ester Bryant MD [address] [place] [address] Drive [address] [place] [address] Internal Medicine 08/16/22 Yoni Preston MD 3350 [place] [address] Medical Oncology 10/14/23 Robe Qureshi MD [address] [address] Dermatology 07/24/24 documented as of this encounter Additional Source Comments The information contained in this document represents components of the legal health record. It is not the complete legal health record.[facility]
--- OUTSIDE RECORDS SUMMARY | 2025-02-13 08:10 | XMS_ITS | Encounter Summary ---
Author Organization [facility] Address [address] [place] [address] Phone Care Team Providers Care Metal Spraying Machine Operator Name Role Phone Ester Bryant MD Unavailable [phone] Ester Bryant MD Primary Care Provider Yoni Preston MD Unavailable Robe Qureshi MD Unavailable [phone] Encounter Details Date Type Department Care Team (Late st Contact Info) Description 08/05/2023 Procedure Pass [facility] [place] [facility] [place], MRI 300 [facility] 4th [place] [address] Social History Tobacco Use Types Packs/Day Years [...] high school, GED, job training, learning the Tuvaluan language, technical skills, or developing parenting skills)? [...] st Contact Info) Description 07/24/2024 Procedure Pass [facility], [facility] [address] [address] 07/24/2024 Procedure Pass [facility], [facility] [address] [address] 07/16/2025 11:05 AM EDT Appointment [facility], [facility] [address] [address] Alka Chiang, FLIGHT MANAGER [address] [place] [address] Beverly@[facility] Clau Lozano MD, MPH [address] [place] [address] Qaun@[facility] 07/16/2025 12:15 PM EDT Appointment [facility], [facility] [address] [address] Alka Chiang CNP 450 [facility]. [address] [place] [address] Beverly@[email or web address] Clau Lozano MD, MPH [address] [place] [address] Quan@[facility] 07/18/2025 10:45 AM EDT Telemedicine [facility], [facility] [place] [address] [address] Clau Lozano MD, MPH [address] [place] [address] Quan@[facility] documented as of this encounter Visit Diagnoses Not on filedocumented in this encounter Care Teams Metal Spraying Machine Operator Relationship Specialty Start Date End Date Ester Bryant MD [address] [facility] [address] [place] [phone] PCP - General Internal Medicine 01/28/23 Ester Bryant MD 2 [facility] [address] [place] [phone] Internal Medicine 08/16/22 Yoni Preston MD [address] [place] [address] Medical Oncology 10/14/23 Robe Qureshi MD [address] [address] Dermatology 07/24/24 documented as of this encounter Additional Source Comments The information contained in this document represents components of the legal health record. It is not the complete legal health record.[facility]
--- OUTSIDE RECORDS SUMMARY | 2025-02-13 08:10 | XMS_ITS | Patient Health Record ---
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 [employer] Section Notes: Nonsmoker; no sig alcohol Problems Problem Type SNOMED Code ICD Code Onset Dates Problem Status W/U Status Risk Notes Problem Screening for malignant neoplasm of colon (718471241) Encounter for screening for malignant neoplasm of colon (Z12.11) Active confirmed Problem Preprocedural examination (330093147862313) Preprocedural examination (Z01.818) Active confirmed Problem Family History of Cancer of Colon (Situation) (783105796) Family history of colon cancer (Z80.0) Active confirmed Plan Of Treatment Pending Test Test Name Order Date Pathology 04/21/2020 Future Test Test Name Order Date COLONOSCOPY 04/10/2020 Insurance Providers Payer Name Payer Address Payer Phone Subscriber Number Group Number Insured Name Patient Relationship to Insured Coverage Start Date Coverage End Date [facility] PROFESSIONAL CLAIMS [address] [place] [address] [id number] COLE GARCIA Self - patient is the insured Medical (General) History Medical History History ICD Code Denies IA,DM,CVA,Lung disease,renal dise ase Surgical History Surgery Date(Month/Year)
--- OUTSIDE RECORDS SUMMARY | 2025-02-13 08:10 | XMS_ITS | Encounter Summary ---
Author Organization [facility] Address [address] [facility] [address] [place] [address] Phone Care Team Providers Care Supervisor Metalizing Name Role Phone Ester Bryant MD Unavailable [phone] Ester Bryant MD Primary Care Provider [phone] Yoni Preston MD Unavailable Robe Qureshi MD Unavailable [phone] Encounter Details Date Type Department Care Team (Late st Contact Info) Description 08/14/2024 Documentation [facility], [place] [facility] [place] [facility] [place] 300 [facility] 3rd [place] [address] Alka Chiang, DIPPER MACHINE OPERATOR 450 [facility] 1047 [place] [address] Beverly@[email or web address] Social History Tobacco Use Types Packs/Day [...] high school, GED, job training, learning the South Sudanese language, technical skills, or developing parenting skills)? [...] st Contact Info) Description 07/24/2024 Procedure Pass [facility], [facility] [address] [address] 07/24/2024 Procedure Pass [facility], [facility] [address] [address] 07/16/2025 11:05 AM EDT Appointment [facility], [facility] [address] [address] Alka Chiang, DIPPER MACHINE OPERATOR 450 [facility]. [address] [address] Beverly@[facility] Clau Lozano MD, MPH [address] [place] [address] Quan@[facility] 07/16/2025 12:15 PM EDT Appointment [facility], [facility] [address] [address] Alka Chiang, DIPPER MACHINE OPERATOR 450 [facility]. [address] [address] Beverly@[facility] Clau Lozano MD, MPH [address] [place] [address] Quan@[facility] 07/18/2025 10:45 AM EDT Telemedicine [facility] Cancer Genetics and Prevention, [facility] [place] [address] [address] Clau Lozano MD, MPH [address] [place] [address] Quan@[facility] documented as of this encounter Visit Diagnoses Not on filedocumented in this encounter Care Teams Supervisor Metalizing Relationship Specialty Start Date End Date Ester Bryant MD 2 [facility] [address] [place] [phone] PCP - General Internal Medicine 01/28/23 Ester Bryant MD [address] [place] [address] Drive [address] [place] [address] Internal Medicine 08/16/22 Yoni Preston MD 3350 [place] [address] Medical Oncology 10/14/23 Robe Qureshi MD [address] [address] Dermatology 07/24/24 documented as of this encounter Additional Source Comments The information contained in this document represents components of the legal health record. It is not the complete legal health record.[facility]
--- OUTSIDE RECORDS SUMMARY | 2025-02-13 08:10 | XMS_ITS | Encounter Summary ---
Author Organization [facility] Address [address] [place] [address] Phone Care Team Providers Care Physician Practice Manager Name Role Phone Ester Bryant MD Unavailable [phone] Ester Bryant MD Primary Care Provider [phone] Yoni Preston MD Unavailable Robe Qureshi MD Unavailable [phone] Encounter Details Date Type Department Care Team (Late st Contact Info) Description 07/25/2024 Procedure Pass [facility], [facility] [place], MRI 450 [facility], Floor [address] [place] [address] Social History Tobacco Use Types Packs/Day Years [...] high school, GED, job training, learning the Beninese language, technical skills, or developing parenting skills)? [...] st Contact Info) Description 07/24/2024 Procedure Pass [facility], [facility] [address] [address] 07/24/2024 Procedure Pass [facility], [facility] [address] [address] 07/16/2025 11:05 AM EDT Appointment [facility], [facility] [address] [address] Alka Chiang, HOME HEALTH AIDE CAREGIVER 450 [facility]. [address] [address] Beverly@[facility] Clau Lozano MD, MPH [address] [place] [address] Quan@[facility] 07/16/2025 12:15 PM EDT Appointment [facility], [address] [address] Alka Chiang, HOME HEALTH AIDE CAREGIVER 450 [facility]. [address] [address] Beverly@[facility] Clau Lozano MD, MPH [address] [place] [address] Quan@[facility] 07/18/2025 10:45 AM EDT Telemedicine Center for Cancer Genetics and Prevention, [facility] at [address] [address] Clau Lozano MD, MPH [address] [place] [address] Quan@[facility] documented as of this encounter Visit Diagnoses Not on filedocumented in this encounter Care Teams Physician Practice Manager Relationship Specialty Start Date End Date Ester Bryant MD [address] [place] [address] Drive [address] [place] [phone] PCP - General Internal Medicine 01/28/23 Ester Bryant MD [address] [place] [address] Drive [address] [place] [phone] Internal Medicine 08/16/22 Yoni Preston MD 3350 [place] [address] Medical Oncology 10/14/23 Robe Qureshi MD [address] [address] Dermatology 07/24/24 documented as of this encounter Additional Source Comments The information contained in this document represents components of the legal health record. It is not the complete legal health record.[facility]
--- OUTSIDE RECORDS SUMMARY | 2025-02-13 08:10 | XMS_ITS | Encounter Summary ---
Author Organization [facility] Address [address] [place] [address] Phone Care Team Providers Care Global Consumer Sector Vice President Name Role Phone Ester Bryant MD Unavailable [phone] Ester Bryant MD Primary Care Provider [phone] Yoni Preston MD Unavailable [phone] Robe Qureshi MD Unavailable [phone] Encounter Details Date Type Department Care Team (Late st Contact Info) Description 06/23/2023 Procedure Pass [facility] [place] [facility] [place], [place] 300 [facility] 4th [place] [address] Social History Tobacco Use Types Packs/Day Years [...] high school, GED, job training, learning the Dutch language, technical skills, or developing parenting skills)? [...] st Contact Info) Description 07/24/2024 Procedure Pass [facility], [facility] [address] [address] 07/24/2024 Procedure Pass [facility], [facility] [address] [address] 07/16/2025 11:05 AM EDT Appointment [facility], [facility] [address] [address] Alka Chiang, GLAUCOMA SPECIALIST [address] [place] [address] [email or web address] Clau Lozano MD, MPH [address] [place] [phone] [email or web address] 07/16/2025 12:15 PM EDT Appointment [facility], [facility] [address] [address] Alka Chiang CNP [address] [facility]. [address] [place] [address] Beverly@[email or web address] Clau Lozano MD, MPH [address] [place] [phone] Quan@[email or web address] 07/18/2025 10:45 AM EDT [facility], [facility] [place] [address] [address] Clau Lozano MD, MPH [address] [place] [address] Quan@[email or web address] documented as of this encounter Visit Diagnoses Not on filedocumented in this encounter Care Teams Global Consumer Sector Vice President Relationship Specialty Start Date End Date Ester Bryant MD [address] [place] [phone] PCP - General Internal Medicine 01/28/23 Ester Bryant MD 2 [facility] [address] [place] [phone] Internal Medicine 08/16/22 Yoni Preston MD [address] [place] [address] Medical Oncology 10/14/23 Robe Qureshi MD [address] [address] Dermatology 07/24/24 documented as of this encounter Additional Source Comments The information contained in this document represents components of the legal health record. It is not the complete legal health record.[facility]
--- OUTSIDE RECORDS SUMMARY | 2025-02-13 08:10 | XMS_ITS | Encounter Summary ---
Author Organization [facility] Address [address] [place] [phone] Phone Care Team Providers Care Aurist Name Role Phone Ester Bryant MD Unavailable [phone] Ester Bryant MD Primary Care Provider Yoni Preston MD Unavailable [phone] Robe Qureshi MD Unavailable [phone] Encounter Details Date Type Department Care Team (Late st Contact Info) Description 06/23/2023 Procedure Pass [facility] [place], MRI 300 [facility] 4th [place] [address] Social History Tobacco Use Types Packs/Day Years [...] high school, GED, job training, learning the [place] language, technical skills, or developing parenting skills)? [...] st Contact Info) Description 07/24/2024 Procedure Pass [facility], [facility] [address] [address] 07/24/2024 Procedure Pass [facility], [facility] [address] [address] 07/16/2025 11:05 AM EDT Appointment [facility], [facility] [address] [address] Alka Chiang, INTERNATIONAL TAX MANAGER [address] [place] [address] [email or web address] Clau Lozano MD, MPH [address] [place] [phone] [email or web address] 07/16/2025 12:15 PM EDT Appointment [facility], [facility] [address] [address] Alka Chiang CNP 450 [facility]. [address] [place] [address] [email or web address] Clau Lozano MD, MPH [address] [place] [phone] [email or web address] 07/18/2025 10:45 AM EDT Tele[facility], [facility] [place] [address] [address] Clau Lozano MD, MPH [address] [place] [phone] [email or web address] documented as of this encounter Visit Diagnoses Not on filedocumented in this encounter Care Teams Aurist Relationship Specialty Start Date End Date Ester Bryant MD [address] [place] [phone] PCP - General Internal Medicine 01/28/23 Ester Bryant MD 2 [facility] [address] [place] [phone] Internal Medicine 08/16/22 Yoni Preston MD [address] [place] [address] Medical Oncology 10/14/23 Robe Qureshi MD [address] [address] Dermatology 07/24/24 documented as of this encounter Additional Source Comments The information contained in this document represents components of the legal health record. It is not the complete legal health record.[facility]
--- OUTSIDE RECORDS SUMMARY | 2025-02-13 08:10 | XMS_ITS | Clinical Summary ---
Author Organization [facility] Address [address] [facility] [address] [place] [address] Phone Care Team Providers Care Optical Element Coater Name Role Phone Ester Bryant MD Unavailable [phone] Ester Bryant MD Primary Care Provider [phone] Yoni Preston MD Unavailable Robe Qureshi MD Unavailable [phone] Allergies No known active allergies Medications multivit with minerals/lutein (MULTIVITAMIN 50 PLUS ORAL) 1 tablet. Active leuprolide, 1 month, (ELIGARD 1 MONTH) 7.5 mg (1 month) Syrg subcutaneous injection syringeIndication s:advanced prostatic carcinoma Inject 7.5 mg under the skin once. Indications: advanced form of prostate cancer Active darolutamide (NUBEQA) 300 mg tabletIndications :non-metastatic castration-resist ant prostate cancer Take 600 mg by mouth 2 (two) times a day. Swallow whole with food. Indications: non-metastati c castration-re sistant prostate cancer Active oxyBUTYnin (DITROPAN) 5 MG tabletIndications :urinary urgency Take 5 mg by mouth 3 (three) times a day. Indications: urinary urgency, or the sudden urge to urinate Active calcium carbonate-vitamin D3 500 mg-400 units per tablet Take 1 tablet by mouth daily. 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 No 08/18/2022 Education Answer Date Recorded Are you interested in more education? Not on amanda e 08/21/2024 Are you concerned about learning? Not on file 08/21/2024 No 08/21/2024 No 08/21/2024 Food Answer Date Recorded Within the past [...] Orientation Straight 08/16/2022 4: 16 PM EDT Last Filed Vital Signs Vital Sign Reading Time Taken Comments Blood Pressure 122/76 07/24/2024 3:50 PM EDT Pulse 56 07/24/2024 3:50 PM EDT Temperature 36.8 C (98.3 F) 07/24/2024 3:50 PM EDT Respiratory Rate 16 07/24/2024 3:50 PM EDT Oxygen Saturation 97% 07/24/2024 3:50 PM EDT Inhaled Oxygen Concentration - - Weight 86.2 kg (190 lb) 07/26/2024 1:23 PM EDT Height 180.4 cm (5' 11.02 ) 07/24/2024 3:50 PM E DT Body Mass Index 26.48 07/24/2024 3:50 PM EDT Plan of Treatment Upcoming Encounters Date Type Department Care Team (Late st Contact Info) Description 07/24/2024 Procedure Pass [facility], [facility] [address] [address] 07/24/2024 Procedure Pass [facility], [facility] [address] [address] 07/16/2025 11:05 AM EDT Appointment [facility], [facility] [address] [address] Alka Chiang, AUTOMATIC CASTING MACHINE OPERATOR [address] [email or web address] Clau Lozano MD, MPH [address] [place] [phone] [email or web address] 07/16/2025 12:15 PM EDT Appointment [facility], [facility] [address] [address] Alka Chiang, AUTOMATIC CASTING MACHINE OPERATOR [address] Beverly@[email or web address] Clau Lozano MD, MPH [address] [place] [phone] Quan@[email or web address] 07/18/2025 10:45 AM EDT Telemed[facility], [facility] [place] 300 [facility] [address] [place] [address] Clau Lozano MD, MPH [address] [place] [phone] [email or web address] Health Maintenance Due Date Last Done Comments LIPID PANEL 1974 DEPRESSION SCREENING 1986 HEPATITIS C SCREENING 1992 HIV ONE-TIME SCREENING (18-65 YEARS) 1992 SCREENING FOR DIABETES 2009 COLOGUARD 04/27/2019 COLONOSCOPY 04/27/2019 COLORECTAL CANCER SCREENING 04/27/2019 FIT TEST 04/27/2019 FOBT 04/27/2019 SIGMOIDOSCOPY 04/27/2019 VIRTUAL COLONOSCOPY 04/27/2019 ZOSTER VACCINES (1 of 2) 2024 INFLUENZA VACCINE (#1) 2024 , 11/29/2021, 12/15/2020, Additional history exists COVID-19 VACCINE (2024- season) 2024 01/02/2021, 01/02/2021, 06/10/2020, Additional history exists Adult Td,Tdap Booster 01/15/2029 01/15/2019, 014 RSV VACCINE (1 - 1-dose 75+ series) 2049 PNEUMOCOCCAL VACCINES (50+ years) Completed 10/19/2022, 08/13/2022 SMOKING STATUS SCREENING (Once After 26 Yrs) Completed 07/27/2024 HEPATITIS A VACCINES Aged Out No long er eligible based on patient's age to complete this topic HIB VACCINES Aged Out No longer eligi ble based on patient's age to complete this topic MENINGOCOCCAL VACCINES (ACWY) Aged Out No longer eligible based on patient's age to complete this topic MENINGOCOCCAL VACCINES (B) Aged Out N o longer eligible based on patient's age to complete this topic Medical Devices Not on file Insurance [facility] [phone] Care Teams Optical Element Coater Relationship Specialty Start Date End Date Ester Bryant MD [address] [place] [phone] PCP - General Internal Medicine 01/28/23 Ester Bryant MD [address] [place] [phone] Internal Medicine 08/16/22 Yoni Preston MD [address]50 [place] [address] Medical Oncology 10/14/23 Robe Qureshi MD [address] [address] Dermatology 07/24/24 Additional Source Comments The information contained in this document represents components of the legal health record. It is not the complete legal health record.[facility]
[2025-02-13 08:20] LABS: MANUAL DIFF FLAG NO
[2025-02-13 08:53] LABS: Hematocrit 41.2 % (42.0-52.0); Hemoglobin 13.5 g/dl (14.0-18.0); Imm Gran Abs Auto 0.02 X10*3/uL (0.00-0.03); Imm Gran Pct Auto 0.4 % (0.0-0.4); Lymphocytes Absolute Auto 1.3 X10*3/uL (1.2-4.9); Mean Corpuscular HGB Conc 32.8 g/dl (31.0-36.0); Mean Corpuscular Hemoglobin 30.6 pg (27.0-33.0); Mean Corpuscular Volume 93.4 fL (80.0-98.0); NRBC Abs Auto 0.000 X10*3/uL (0.0-0.012); NRBC Pct Auto 0.0 /100WBC (0.0-0.2); Platelet Count 284 X10*3/uL (160-400); Red Blood Count 4.41 X10*6/uL (4.60-5.80); Reticulocytes Absolute 0.034 X10*6/uL (0.026-0.095); White Blood Count 4.7 X10*3/uL (4.8-10.8)
[2025-02-13 09:21] LABS: Appearance Urine Clear; Glucose Urine UA Negative (Negative); PH 8.5 (5.0-9.0); Specific Gravity - Urine 1.015 (1.005-1.025)
[2025-02-13 09:25] LABS: Alanine Aminotransferase 41 U/L (0-40); Albumin Level 4.6 g/dL (3.5-5.0); Alkaline Phosphatase 89 U/L (39-117); Anion Gap 10 (12-20); Aspartate Amino Transferase 35 U/L (5-37); Blood Urea Nitrogen 12 mg/dL (9-16); Calcium 8.9 mg/dL (8.4-10.2); Carbon Dioxide 28 mmol/L (22-29); Chloride 109 mmol/L (96-108); Cholesterol 200 mg/dL (<200); Estimated Glomerular Filt Rate > 60; HDL Cholesterol 66 mg/dL (>40); Magnesium 2.1 mg/dL (1.6-2.6); Potassium 3.9 mmol/L (3.3-5.1); Sodium 143 mmol/L (135-145); Total Protein 7.3 g/dL (6.5-8.0); Triglycerides 105 mg/dL (<150)
[2025-02-13 09:35] LABS: Ferritin 263 ng/mL (20-250); Free T4 (Free Thyroxine) 0.94 ng/dL (0.71-1.85); Thyroid Stimulating Hormone 1.41 uIU/mL (0.32-4.0)
[2025-02-13 09:42] LABS: PSA,Total (Free>4and<10) < 0.10 ng/mL (0.00-4.00)
[2025-02-13 09:55] LABS: Folate 9.9 ng/mL (> or = 4.0); Vitamin B12 574 pg/mL (200-900)
== END 2025-02-13 08:06 | disposition home or self-care (01) ==
LOC: HO.LAB 08:05
PROVIDERS: PCP Internal Medicine; Visit Provider Internal Medicine
DX: C61 Malignant neoplasm of prostate (principal); E78.00 Pure hypercholesterolemia, unspecified; R30.0 Dysuria; R79.89 Other specified abnormal findings of blood chemistry; Z12.5 Encounter for screening for malignant neoplasm of prostate; Z13.21 Encounter for screening for nutritional disorder
CPT/HCPCS: 36415; 80053; 80061; 81003; 82306; 82607; 82728; 82746; 83036; 83735; 84153; 84439; 84443; 85025; 85045